=== PATIENT | female | born 1990 | race American Indian/Alaskan Native ===

== ENCOUNTER 2017-06-17 09:02 | Inpatient (IN) | payer MEDICAID ==
[2017-06-17] MEDS ORDERED: fentaNYL 100 MCG/2 ML SDV IVPUSH ONE (12:41)
[2017-06-17] MEDS ORDERED: ePHEDrine 50 MG/ML SDV IVPUSH ONE (13:41)
[2017-06-17] MEDS ORDERED: Lactated Ringers 1,000 ML IV ONE ×3 (13:41→17:32)
--- NOTE | 2017-06-17 13:50 | PCM.LDHP ---
L&D History of Present Illness - General Date of Service: 06/17/17 Admit Problem/Dx: Admission Diagnosis/Problem Admission Diagnosis/Problem Source of Information: Patient History Limitations: Reports: No Limitations - History of Present Illness Introduction:: Abhijit is a 27 year old female with LMP of 08/20/16 and JAIME of 06/14/17 (based on 10 6/7 weeks US) at 40 3/7 with chief complaint of contractions. Present Illness Comments:: She states the contractions started at 9 pm last night, no leaking fluid, small amount of bloody show. Her history was reviewed and significant for UTI and tobacco use (1/2 ppd). She transferred care from [facility] in [place]. She has been followed by Jenny Coello and was scheduled for induction next Mon. PMHxPSHx: Tobacco dependence, Hand surgery, Knee surgery, [place] teeth removal Social history: tobacco dependence, FOB of baby involved, Hiren Armendariz FamHx: Father - Etoh/drug addiciton and Bipolar OB labs: A+, Antibody screen neg, HbsAg neg, Rub Immune, HIV neg, GC/Chlam neg , RPR neg, GBS neg Immunizations: Influenza and Tdap UTD - Related Data Allergies/Adverse Reactions: Allergies Allergy/AdvReac Type Severity Reaction Status Date / Time No Known Allergies Allergy Verified 06/17/17 09:15 Home Medications: Home Meds Ich036/FA/Omega3/Dha/Fish Oil [ Gummies] 1 tab DAILY 06/17/17 [History] Past Medical History Gastrointestinal History: Reports: Other (See Below) Other Gastrointestinal History: acid reflux Genitourinary History: Reports: UTI, Recurrent - Past Surgical History Head Surgeries/Procedures: Reports: None GI Surgical History: Reports: None Female Surgical History: Reports: None Social & Family History - Family History HEENT: Reports: None Cardiac: Reports: Hypertension Respiratory: Reports: None GI: Reports: None : Reports: None OBGYN: Reports: None Musculoskeletal: Reports: None Neurological: Reports: Seizure Psychiatric: Reports: Bipolar Endocrine/Metabolic: Reports: None Hematologic: Reports: None Immunologic: Reports: None Dermatologic: Reports: None Oncologic: Reports: None H&P Review of Systems - Review of Systems: Review Of Systems: See Below General: Reports: No Symptoms HEENT: Reports: No Symptoms Pulmonary: Reports: No Symptoms Cardiovascular: Reports: No Symptoms Gastrointestinal: Reports: No Symptoms Genitourinary: Reports: No Symptoms Musculoskeletal: Reports: Back Pain Skin: Reports: No Symptoms Psychiatric: Reports: No Symptoms Neurological: Reports: No Symptoms Hematologic/Lymphatic: Reports: No Symptoms Immunologic: Reports: No Symptoms L&D Exam - Exam Exam: See Below - Vital Signs Vital Signs: Last Vital Signs Temp 96.9 F 06/17/17 13:00 Pulse 84 06/17/17 13:00 Resp 18 06/17/17 13:00 BP 121/77 06/17/17 13:00 Pulse Ox 98 06/17/17 13:00 Weight: 160 lb - OB Specific Contraction Duration (sec): 50-100 Contraction Frequency (min): 1.5-3.5 Contraction Intensity: Strong - Baugh Score Baugh Score Cervix Position: Midposition Baugh Score Consistency: Soft Baugh Score Effacement: >80% Baugh Score Dilation: 3-4 cm Baugh Score 's Station: -2 Baugh Score Total: 9 - Exam General: Alert, Oriented HEENT: Mucosa Moist & [place] Neck: Supple, Trachea Midline Lungs: Clear to Auscultation, Normal Respiratory Effort Cardiovascular: Regular Rate, Regular Rhythm GI/Abdominal Exam: Normal Bowel Sounds, Soft, Non-Tender Genitourinary: Normal external exam, Cervical dilitation (80/4-5/-2) Extremities: Normal Inspection, Non-Tender, No Pedal Edema Skin: Warm, Dry, Intact Psychiatric: Alert, Normal Affect, Normal Mood - Patient Data Lab Results Last 24 hrs: Laboratory Results - last 24 hr 06/17/17 06/17/17 06/17/17 Range/Units 09:16 10:29 10:29 WBC 21.3 H (4.5-11.0) K/uL RBC 4.58 (3.30-5.50) M/uL Hgb 14.5 (12.0-15.0) g/dL Hct 42.0 (36.0-48.0) % MCV 92 (80-98) fL MCH 32 H (27-31) pg MCHC 35 (32-36) % Plt Count 285 (150-400) K/uL Neut % (Auto) 86 H (36-66) % Lymph % (Auto) 10 L (24-44) % [place] % (Auto) 4 (2-6) % Eos % (Auto) 0 L (2-4) % Baso % (Auto) 0 (0-1) % Urine Color Yellow Urine Appearance Slightly cloudy Urine pH 7.0 (4.5-8.0) Ur Specific [place] 1.010 (1.008-1.030) Urine Protein Negative (NEGATIVE) mg/dL Urine Glucose (UA) Normal (NEGATIVE) mg/dL Urine Ketones Negative (NEGATIVE) mg/dL Urine Occult Blood Large (NEGATIVE) Urine Nitrite Negative (NEGATIVE) Urine Bilirubin Negative (NEGATIVE) Urine Urobilinogen 1 (NORMAL) mg/dL Ur Leukocyte Esterase Large (NEGATIVE) Urine RBC 20-30 H (0-5) Urine WBC 10-20 H (0-5) Ur Epithelial Cells Many Amorphous Sediment Not seen Urine Bacteria Few Urine Mucus Not seen Urine Opiates Screen Negative (NEGATIVE) Ur Oxycodone Screen Negative (NEGATIVE) Urine Methadone Screen Negative (NEGATIVE) Ur Propoxyphene Screen Negative (NEGATIVE) Ur Barbiturates Screen Negative (NEGATIVE) Ur Tricyclics Screen Negative (NEGATIVE) Ur Phencyclidine Scrn Negative (NEGATIVE) Ur Amphetamine Screen Negative (NEGATIVE) U Methamphetamines Scrn Negative (NEGATIVE) Urine MDMA Screen Negative (NEGATIVE) U Benzodiazepines Scrn Negative (NEGATIVE) U Cocaine Metab Screen Negative (NEGATIVE) U Marijuana (THC) Screen Negative (NEGATIVE) Result Diagrams: 06/17/17 10:29 - Problem List (1) SNOMED Code(s): 71496542 ICD Code: Z34.90 - ENCNTR FOR SUPRVSN OF NORMAL , UNSP, UNSP TRIMESTER Status: Acute Current Visit: Yes Qualifiers: Weeks of gestation: 40 weeks Qualified Code(s): Z3A.40 - 40 weeks gestation of Problem List Initiated/Reviewed/Updated: Yes Orders Last 24hrs: Active Orders 24 hr Category Date Time Status Local Anesthetic Infusion Pump [RC] ASDIRECTED Care 06/17/17 13:41 Active Local Anesthetic Infusion Pump [RC] ASDIRECTED Care 06/17/17 13:41 Active PCEA Epidural [RC] ASDIRECTED Care 06/17/17 13:41 Active PCEA Epidural [RC] ASDIRECTED Care 06/17/17 13:41 Active Regular Diet [DIET] Diet 06/17/17 Lunch Active Lactated Ringers [Ringers, Lactated] 1,000 ml Med 06/17/17 13:41 Ordered IV .BOLUS Lactated Ringers [Ringers, Lactated] 1,000 ml Med 06/17/17 13:41 Ordered IV .BOLUS ePHEDrine [ePHEDrine Sulfate] Med 06/17/17 13:41 Once 5 mg IVPUSH ONETIME ONE Epidural Catheter Management [OM.PC] Urgent Oth 06/17/17 13:41 Ordered Medication Orders Ephedrine Sulfate (Ephedrine Sulfate) 5 mg IVPUSH ONETIME ONE Stop: 06/17/17 13:42 Lactated Ringer's (Ringers, Lactated) 1,000 mls @ 999 mls/hr IV .BOLUS ONE Stop: 06/17/17 14:41 Lactated Ringer's (Ringers, Lactated) 1,000 mls @ 999 mls/hr IV .BOLUS ONE Stop: 06/17/17 14:41 Assessment/Plan Comment:: 27 year old female at 40 3/7 in active labor with intact membranes, GBS positive. Tobacco dependence. Declines IV pain medications, desires epidural. Anticipate .
[2017-06-17] MEDS ORDERED: Lactated Ringers 1,000 ML IV SCH (15:00)
--- NOTE | 2017-06-17 15:24 | PCM.PNLD ---
Labor Progress Note - VS & Meds Vital Signs: Last Vital Signs Temp 96.9 F 06/17/17 13:30 Pulse 84 06/17/17 13:30 Resp 18 06/17/17 13:30 BP 121/77 06/17/17 13:30 Pulse Ox 98 06/17/17 13:30 Active Medications: Current Medications Oxytocin/Sodium Chloride (Pitocin In Ns 20 Units/1,000 Ml) 20 unit in 1,000 mls @ 2,997 mls/hr IV TITRATE KODY; 999 MUNITS/MIN PRN Reason: Protocol Discontinued Medications Ephedrine Sulfate (Ephedrine Sulfate) 5 mg IVPUSH ONETIME ONE Stop: 06/17/17 13:42 Fentanyl (Sublimaze) 50 mcg IVPUSH ONETIME ONE Stop: 06/17/17 12:42 Last Admin: 06/17/17 14:05 Dose: Not Given Lactated Ringer's (Ringers, Lactated) 1,000 mls @ 999 mls/hr IV .BOLUS ONE Stop: 06/17/17 14:41 Last Admin: 06/17/17 14:00 Dose: 999 mls/hr Lactated Ringer's (Ringers, Lactated) 1,000 mls @ 999 mls/hr IV .BOLUS ONE Stop: 06/17/17 14:41 - Uterine Contractions Uterine Monitoring Mode: External [place] Contraction Frequency (min): 1.5-3.5 Contraction Duration (sec): 50-100 Contraction Intensity: Strong Uterine Resting Tone: Soft - Monitoring Monitor Mode: External Ultrasound Heart Rate (FHR) Variability: Moderate (6-25 bmp) Accelerations: Present, 15x15 Decelerations: None Strip Review: Category I - Labor Progress (Free Text) Labor Progress: Patient comfortable after epidural, in active labor. Continue to monitor.
[2017-06-17] MEDS ORDERED: fentaNYL 100 MCG/2 ML SDV ONE (15:36)
[2017-06-17] MEDS ORDERED: Ropivacaine 100 ML ONE (15:37)
--- NOTE | 2017-06-17 17:16 | PCM.PNLD ---
Labor Progress Note - VS & Meds Vital Signs: Last Vital Signs Temp 97.9 F 06/17/17 16:00 Pulse 90 06/17/17 16:00 Resp 18 06/17/17 16:00 BP 106/72 06/17/17 15:15 Pulse Ox 98 06/17/17 16:00 Active Medications: Current Medications Oxytocin/Sodium Chloride (Pitocin In Ns 20 Units/1,000 Ml) 20 unit in 1,000 mls @ 2,997 mls/hr IV TITRATE KODY; 999 MUNITS/MIN PRN Reason: Protocol Lactated Ringer's (Ringers, Lactated) 1,000 mls @ 125 mls/hr IV ASDIRECTED KODY Last Admin: 06/17/17 15:05 Dose: 125 mls/hr Discontinued Medications Ephedrine Sulfate (Ephedrine Sulfate) 5 mg IVPUSH ONETIME ONE Stop: 06/17/17 13:42 Fentanyl (Sublimaze) 50 mcg IVPUSH ONETIME ONE Stop: 06/17/17 12:42 Last Admin: 06/17/17 14:05 Dose: Not Given Fentanyl (Sublimaze) Confirm Administered Dose 100 mcg .ROUTE .STK-MED ONE Stop: 06/17/17 15:37 Lactated Ringer's (Ringers, Lactated) 1,000 mls @ 999 mls/hr IV .BOLUS ONE Stop: 06/17/17 14:41 Last Admin: 06/17/17 14:00 Dose: 999 mls/hr Lactated Ringer's (Ringers, Lactated) 1,000 mls @ 999 mls/hr IV .BOLUS ONE Stop: 06/17/17 14:41 Ropivacaine (Naropin 0.2%) Confirm Administered Dose 100 mls @ as directed .ROUTE .STK-MED ONE Stop: 06/17/17 15:38 - Uterine Contractions Uterine Monitoring Mode: External [place] Contraction Frequency (min): 1-3 Contraction Duration (sec): 50-80 Contraction Intensity: Strong Uterine Resting Tone: Soft - Monitoring Monitor Mode: External Ultrasound Heart Rate (FHR) Variability: Moderate (6-25 bmp) Accelerations: Present, 15x15 Decelerations: None Strip Review: Category I - Vaginal Exam Dilation (cm): 6 Effacement (Percent): 90 Station: -1 Sterile Vaginal Exam Performed By: Nadia Malcolm Vaginal Exam Comment: Bulging bag - AROM clear fluid - Labor Progress (Free Text) Labor Progress: 27 year old at 40 3/7 weeks, GBS negative, in active labor. Comfortable with epidural, using peanut ball, segovia in place. Anticipate .
--- NOTE | 2017-06-17 18:06 | PN ---
DATE OF SERVICE: 06/17/2017 This 27-year-old woman is in labor and she is dilated to approximately [address] Nadia Malcolm has requested an epidural be placed. I explained the procedure depth to the patient. She has no allergies and has signed an informed consent and is ready to proceed. She is placed in a sitting position. Her back was prepped with Betadine x3. At approximately L3-4, I injected 2 to 3 mL of xylocaine at skin level and into the deeper tissue. I then placed a 17-gauge Tuohy needle into the epidural space at that level using a loss of resistance technique. I was unable to aspirate blood, fluid, or air and proceeded to give her a bolus of 1.5% Xylocaine preservative-free 5 mL and 2 mL of fentanyl. I then threaded an epidural catheter approximately 3-4 cm in the elbow epidural space and removed the needles over the catheter. The catheter brought up over her right shoulder and taped securely in place. She was then placed on a ropivacaine infusion 0.2% at 12 mL/hour. This was reviewed with the nurse in attendance. The patient tolerated this procedure well. Anesthesia will be notified as they need further care in the OB department. NAME OF PROCEDURE: Placement of labor epidural. Leo Nixon CRNA /[id number]
[2017-06-17] MEDS ORDERED: Lactated Ringers 500 ML IV ONE (18:09)
[2017-06-17] MEDS ORDERED: Lidocaine 1% 50 ML MDV ONE (19:02)
--- NOTE | 2017-06-17 22:10 | PCM.DEL ---
L & D Note - General Info Date of Service: 06/17/17 - Delivery Note Labor: Spontaneous Delivery Outcome: Livebirth Delivery Method: Spontaneous Vaginal Delivery-Single Delivery Mode: Spontaneous Presentation: Right Occiput Anterior (CATALINA) Nuchal Cord: Present, Reduced Prep: Povidone-Iodine (Betadine Anesthesia Type: Epidural Amniotic Fluid Description: Clear Episiotomy Type: None Laceration: 2nd Degree Suture type: Vicryl Suture size: 3-0 Placenta: Intact, Spontaneous Cord: 3 Vessels Estimated Blood Loss: 250 Resuscitation Needed: No [place]: Stimulated, Warmed, [place] Used Provider: Nadia Malcolm Score 1 min: 9 Score 5 min: 9 Score 10 min: 9 Second Stage Interventions: Reports: Encouragement Given, Pushing Effectively, Pushing, McRobert's Position, Pushing, Squat Bar Pulling on Device Delivery Comments (Free Text/Narrative):: Labor progressed steadily. Intermittent lates and variables immediately following AROM responded to repositioning and fluid bolus. Baby tolerated second stage well and delivered CATALINA, nuchal cord x 1. Left shoulder was anterior. Second degree laceration. Cord was clamped and cut after one minute. Placenta delivered without complication, 3V and intact. EBL was 250. Pitocin was started at time of delivery with active management of the third stage of labor. Uterus was firm. Second degree laceration was repaired in usual fashion with 3-0 vicryl. Sponge and needle count were correct. Rectum was confirmed intact. Mom and baby were in stable condition with baby to Mom's chest with skin to skin. - Patient Data Vitals - Most Recent: Last Vital Signs Temp 97.9 F 06/17/17 18:22 Pulse 83 06/17/17 18:30 Resp 16 06/17/17 18:30 BP 104/65 06/17/17 18:30 Pulse Ox 95 06/17/17 18:30 Weight - Most Recent: 160 lb I&O - Last 24 Hours: Intake & Output 06/17/17 06/17/17 06/17/17 06:59 14:59 22:59 Output Total 325 Balance -325 Lab Results Last 24 Hours: Laboratory Results - last 24 hr 06/17/17 06/17/17 06/17/17 Range/Units 09:16 10:29 10:29 WBC 21.3 H (4.5-11.0) K/uL RBC 4.58 (3.30-5.50) M/uL Hgb 14.5 (12.0-15.0) g/dL Hct 42.0 (36.0-48.0) % MCV 92 (80-98) fL MCH 32 H (27-31) pg MCHC 35 (32-36) % Plt Count 285 (150-400) K/uL Neut % (Auto) 86 H (36-66) % Lymph % (Auto) 10 L (24-44) % [place] % (Auto) 4 (2-6) % Eos % (Auto) 0 L (2-4) % Baso % (Auto) 0 (0-1) % Urine Color Yellow Urine Appearance Slightly cloudy Urine pH 7.0 (4.5-8.0) Ur Specific [place] 1.010 (1.008-1.030) Urine Protein Negative (NEGATIVE) mg/dL Urine Glucose (UA) Normal (NEGATIVE) mg/dL Urine Ketones Negative (NEGATIVE) mg/dL Urine Occult Blood Large (NEGATIVE) Urine Nitrite Negative (NEGATIVE) Urine Bilirubin Negative (NEGATIVE) Urine Urobilinogen 1 (NORMAL) mg/dL Ur Leukocyte Esterase Large (NEGATIVE) Urine RBC 20-30 H (0-5) Urine WBC 10-20 H (0-5) Ur Epithelial Cells Many Amorphous Sediment Not seen Urine Bacteria Few Urine Mucus Not seen Urine Opiates Screen Negative (NEGATIVE) Ur Oxycodone Screen Negative (NEGATIVE) Urine Methadone Screen Negative (NEGATIVE) Ur Propoxyphene Screen Negative (NEGATIVE) Ur Barbiturates Screen Negative (NEGATIVE) Ur Tricyclics Screen Negative (NEGATIVE) Ur Phencyclidine Scrn Negative (NEGATIVE) Ur Amphetamine Screen Negative (NEGATIVE) U Methamphetamines Scrn Negative (NEGATIVE) Urine MDMA Screen Negative (NEGATIVE) U Benzodiazepines Scrn Negative (NEGATIVE) U Cocaine Metab Screen Negative (NEGATIVE) U Marijuana (THC) Screen Negative (NEGATIVE) Med Orders - Current: Current Medications Oxytocin/Sodium Chloride (Pitocin In Ns 20 Units/1,000 Ml) 20 unit in 1,000 mls @ 2,997 mls/hr IV TITRATE KODY; 999 MUNITS/MIN PRN Reason: Protocol Lactated Ringer's (Ringers, Lactated) 1,000 mls @ 125 mls/hr IV ASDIRECTED KODY Last Admin: 06/17/17 15:05 Dose: 125 mls/hr Discontinued Medications Ephedrine Sulfate (Ephedrine Sulfate) 5 mg IVPUSH ONETIME ONE Stop: 06/17/17 13:42 Fentanyl (Sublimaze) 50 mcg IVPUSH ONETIME ONE Stop: 06/17/17 12:42 Last Admin: 06/17/17 14:05 Dose: Not Given Fentanyl (Sublimaze) Confirm Administered Dose 100 mcg .ROUTE .STK-MED ONE Stop: 06/17/17 15:37 Lactated Ringer's (Ringers, Lactated) 1,000 mls @ 999 mls/hr IV .BOLUS ONE Stop: 06/17/17 14:41 Last Admin: 06/17/17 14:00 Dose: 999 mls/hr Lactated Ringer's (Ringers, Lactated) 1,000 mls @ 999 mls/hr IV .BOLUS ONE Stop: 06/17/17 14:41 Ropivacaine (Naropin 0.2%) Confirm Administered Dose 100 mls @ as directed .ROUTE .STK-MED ONE Stop: 06/17/17 15:38 Lactated Ringer's (Ringers, Lactated) 1,000 mls @ 999 mls/hr IV BOLUS ONE Stop: 06/17/17 18:32 Last Admin: 06/17/17 17:30 Dose: 999 mls/hr Lactated Ringer's (Ringers, Lactated) 500 mls @ 999 mls/hr IV BOLUS ONE Stop: 06/17/17 18:39 Last Admin: 06/17/17 18:28 Dose: 999 mls/hr Lidocaine HCl (Xylocaine 1%) Confirm Administered Dose 100 ml .ROUTE .STK-MED ONE Stop: 06/17/17 19:03 - Problem List & Annotations (1) SNOMED Code(s): 44192362 Code(s): Z34.90 - ENCNTR FOR SUPRVSN OF NORMAL , UNSP, UNSP TRIMESTER Status: Acute Current Visit: Yes Qualifiers: Weeks of gestation: 40 weeks Qualified Code(s): Z3A.40 - 40 weeks gestation of (2) Normal vaginal delivery SNOMED Code(s): 75640058 Code(s): O80 - ENCOUNTER FOR FULL-TERM UNCOMPLICATED DELIVERY Status: Acute Current Visit: Yes - Problem List Review Problem List Initiated/Reviewed/Updated: Yes - My Orders Last 24 Hours: My Active Orders 06/17/17 13:41 PCEA Epidural [RC] ASDIRECTED Epidural Catheter Management [OM.PC] Urgent 06/17/17 15:00 Lactated Ringers [Ringers, Lactated] 1,000 ml IV ASDIRECTED 06/17/17 15:30 Insert [place] Catheter [Insert Urinary Catheter] [OM.PC] Q24H Urinary Catheter Assessment [RC] ASDIRECTED 06/17/17 18:00 Oxytocin/Normal Saline [Pitocin in NS 20 Units/1,000 ML] 20 unit in 1,000 ml IV TITRATE 06/17/17 Lunch Regular Diet [DIET] - Assessment Assessment:: 27 year old female s/p spontaneous vaginal delivery. See labor summary. - Plan Plan:: 27 year old female at 40 3/7 in active labor with intact membranes, GBS positive. Tobacco dependence. Declines IV pain medications, desires epidural. Anticipate .
[2017-06-17] MEDS ORDERED: Simethicone 80 MG Tab.Chew PO PRN (22:24)
[2017-06-17] MEDS ORDERED: Lanolin 100% Cream 40 GM Tube TOP PRN (22:24)
[2017-06-17] MEDS ORDERED: Acetaminophen/Codeine 300-30 MG Tab PO PRN (22:24)
[2017-06-17] MEDS ORDERED: Docusate Sodium 100 MG Cap PO PRN (22:24)
[2017-06-17] MEDS ORDERED: Acetaminophen 325 MG Tab PO PRN (22:24)
[2017-06-17] MEDS ORDERED: Benzocaine 20% Top Spray 56 GM Bottle TOP PRN (22:24)
[2017-06-17] MEDS ORDERED: Aluminum Hydroxide/Magnesium Hydroxide/Simethicone Susp 30 ML Cup PO PRN (22:24)
[2017-06-17] MEDS: Ibuprofen 800 MG Tab PO PRN (22:52)
[2017-06-17] MEDS ORDERED: hydrOXYzine HCl 100 MG/2 ML SDV IM ONE (23:06)
[2017-06-18] MEDS: Ibuprofen 800 MG Tab PO PRN ×2 (07:20→14:35)
[2017-06-18] MEDS: Prenatal Multivitamin with Calcium/Folic Acid/Iron Tab PO SCH (09:05)
--- NOTE | 2017-06-18 10:40 | PCM.PNPP ---
- General Info Date of Service: 06/18/17 Admission Dx/Problem (Free Text): Admission Diagnosis/Problem Admission Diagnosis/Problem Subjective Update: Patient feeling well. Is drinking, has not eaten much. Slept well after dose of Vistaril last night. Pain controlled with ibuprofen. goind better, latched twice, but baby pretty sleepy. Functional Status: Reports: Pain Controlled - Review of Systems General: Reports: No Symptoms HEENT: Reports: No Symptoms Pulmonary: Reports: No Symptoms Cardiovascular: Reports: No Symptoms Gastrointestinal: Reports: No Symptoms Genitourinary: Reports: No Symptoms Musculoskeletal: Reports: No Symptoms Skin: Reports: No Symptoms Neurological: Reports: No Symptoms Psychiatric: Reports: No Symptoms - General Info Date of Service: 06/18/17 - Patient Data Vital Signs - Most Recent: Last Vital Signs Temp 97.0 F 06/18/17 07:20 Pulse 77 06/18/17 00:30 Resp 18 06/18/17 00:30 BP 106/66 06/18/17 00:30 Pulse Ox 95 06/17/17 18:30 Weight - Most Recent: 160 lb I&O - Last 24 Hours: Intake & Output 06/17/17 06/18/17 06/18/17 21:59 06:59 14:59 Intake Total Output Total Balance Lab Results - Last 24 Hours: Laboratory Results - last 24 hr 06/17/17 06/17/17 06/18/17 Range/Units 10:29 10:29 05:40 WBC 21.3 H 28.5 H (4.5-11.0) K/uL RBC 4.58 3.81 (3.30-5.50) M/uL Hgb 14.5 12.1 D (12.0-15.0) g/dL Hct 42.0 35.6 L (36.0-48.0) % MCV 92 93 (80-98) fL MCH 32 H 32 H (27-31) pg MCHC 35 34 (32-36) % Plt Count 285 229 (150-400) K/uL Neut % (Auto) 86 H 88 H (36-66) % Lymph % (Auto) 10 L 7 L (24-44) % [place] % (Auto) 4 4 (2-6) % Eos % (Auto) 0 L 0 L (2-4) % Baso % (Auto) 0 0 (0-1) % Urine Opiates Screen Negative (NEGATIVE) Ur Oxycodone Screen Negative (NEGATIVE) Urine Methadone Screen Negative (NEGATIVE) Ur Propoxyphene Screen Negative (NEGATIVE) Ur Barbiturates Screen Negative (NEGATIVE) Ur Tricyclics Screen Negative (NEGATIVE) Ur Phencyclidine Scrn Negative (NEGATIVE) Ur Amphetamine Screen Negative (NEGATIVE) U Methamphetamines Scrn Negative (NEGATIVE) Urine MDMA Screen Negative (NEGATIVE) U Benzodiazepines Scrn Negative (NEGATIVE) U Cocaine Metab Screen Negative (NEGATIVE) U Marijuana (THC) Screen Negative (NEGATIVE) Med Orders - Current: Current Medications Acetaminophen (Tylenol) 650 mg PO Q4H PRN PRN Reason: mild pain or fever Acetaminophen/Codeine Phosphate (Tylenol With Codeine No.3 300mg/30mg) 2 tab PO Q4H PRN PRN Reason: Pain (moderate 4-6) Al Hydroxide/Mg Hydroxide (Mag-Al Plus) 30 ml PO Q8H PRN PRN Reason: Heartburn Benzocaine (Vdse-G-Oxawvin 20% [place]) 0 gm TOP Q4H PRN PRN Reason: Perineal Comfort Measure Last Admin: 06/17/17 22:52 Dose: 1 spray Docusate Sodium (Colace) 100 mg PO BID PRN PRN Reason: Constipation Emollient Ointment (Lansinoh Hpa) 0 gm TOP ASDIRECTED PRN PRN Reason: Sore Nipples Last Admin: 06/18/17 09:05 Dose: 1 applic Oxytocin/Sodium Chloride (Pitocin In Ns 20 Units/1,000 Ml) 20 unit in 1,000 mls @ 2,997 mls/hr IV TITRATE KODY; 999 MUNITS/MIN PRN Reason: Protocol Last Admin: 06/17/17 21:35 Dose: 999 munits/min, 2,997 mls/hr Lactated Ringer's (Ringers, Lactated) 1,000 mls @ 125 mls/hr IV ASDIRECTED KODY Last Admin: 06/17/17 15:05 Dose: 125 mls/hr Ibuprofen (Motrin) 800 mg PO Q6H PRN PRN Reason: mild pain or fever Last Admin: 06/18/17 07:20 Dose: 800 mg Prenat Multivit/[place]/Iron/Folic Ac ( Plus Iron) 1 each PO DAILY KODY Last Admin: 06/18/17 09:05 Dose: 1 each Simethicone (Simethicone) 80 mg PO Q4H PRN PRN Reason: Gas Discontinued Medications Ephedrine Sulfate (Ephedrine Sulfate) 5 mg IVPUSH ONETIME ONE Stop: 06/17/17 13:42 Last Admin: 06/17/17 23:44 Dose: Not Given Fentanyl (Sublimaze) 50 mcg IVPUSH ONETIME ONE Stop: 06/17/17 12:42 Last Admin: 06/17/17 14:05 Dose: Not Given Fentanyl (Sublimaze) Confirm Administered Dose 100 mcg .ROUTE .STK-MED ONE Stop: 06/17/17 15:37 Hydroxyzine HCl (Vistaril) 25 mg IM ONETIME ONE Stop: 06/17/17 23:07 Last Admin: 06/17/17 23:34 Dose: 25 mg Lactated Ringer's (Ringers, Lactated) 1,000 mls @ 999 mls/hr IV .BOLUS ONE Stop: 06/17/17 14:41 Last Admin: 06/17/17 14:00 Dose: 999 mls/hr Lactated Ringer's (Ringers, Lactated) 1,000 mls @ 999 mls/hr IV .BOLUS ONE Stop: 06/17/17 14:41 Last Admin: 06/17/17 23:44 Dose: Not Given Ropivacaine (Naropin 0.2%) Confirm Administered Dose 100 mls @ as directed .ROUTE .STK-MED ONE Stop: 06/17/17 15:38 Lactated Ringer's (Ringers, Lactated) 1,000 mls @ 999 mls/hr IV BOLUS ONE Stop: 06/17/17 18:32 Last Admin: 06/17/17 17:30 Dose: 999 mls/hr Lactated Ringer's (Ringers, Lactated) 500 mls @ 999 mls/hr IV BOLUS ONE Stop: 06/17/17 18:39 Last Admin: 06/17/17 18:28 Dose: 999 mls/hr Lidocaine HCl (Xylocaine 1%) Confirm Administered Dose 100 ml .ROUTE .STK-MED ONE Stop: 06/17/17 19:03 Last Admin: 06/17/17 23:44 Dose: Not Given - Infant Interaction Disposition, : in Room with Family Interaction: Holding Infant Infant Feeding: Attempted ; Nursed Fair/Poor, Encouraged to Breastfeed Support Person: Significant Other, Other (see below) - Recovery Exam Fundal Tone: Firm Fundal Level: At Umbilicus Fundal Placement: Midline Lochia Amount: Small Lochia Color: Rubra/Red Episiotomy/Laceration: Approximated Bladder Status: Indwelling Catheter in Place Urinary Elimination: Voided - Exam General: Alert, Oriented Lungs: Clear to Auscultation, Normal Respiratory Effort Cardiovascular: Regular Rate, Regular Rhythm GI/Abdominal Exam: Soft, Non-Tender Extremities: Normal Inspection, Non-Tender, No Pedal Edema Skin: Warm, Dry Psy/Mental Status: Normal Affect, Normal Mood - Problem List & Annotations (1) SNOMED Code(s): 98084242 Code(s): Z34.90 - ENCNTR FOR SUPRVSN OF NORMAL , UNSP, UNSP TRIMESTER Status: Acute Current Visit: Yes Qualifiers: Weeks of gestation: 40 weeks Qualified Code(s): Z3A.40 - 40 weeks gestation of (2) Normal vaginal delivery SNOMED Code(s): 99887390 Code(s): O80 - ENCOUNTER FOR FULL-TERM UNCOMPLICATED DELIVERY Status: Acute Current Visit: Yes - Problem List Review Problem List Initiated/Reviewed/Updated: Yes - My Orders Last 24 Hours: My Active Orders 06/17/17 13:41 PCEA Epidural [RC] ASDIRECTED Epidural Catheter Management [OM.PC] Urgent 06/17/17 15:00 Lactated Ringers [Ringers, Lactated] 1,000 ml IV ASDIRECTED 06/17/17 15:30 Insert [place] Catheter [Insert Urinary Catheter] [OM.PC] Q24H 06/17/17 18:00 Oxytocin/Normal Saline [Pitocin in NS 20 Units/1,000 ML] 20 unit in 1,000 ml IV TITRATE 06/17/17 22:24 Patient Status [ADT] Routine May Shower [RC] ASDIRECTED Up ad Veronica [RC] ASDIRECTED Vital Signs [RC] PFP Consult to Quality Control Director [CONS] Routine Acetaminophen [Tylenol] 650 mg PO Q4H PRN Acetaminophen/Codeine [Tylenol with Codeine No.3 300MG/30MG] 2 tab PO Q4H PRN Alum Hydrox/Mag Hydrox/Simeth [Mag-Al Plus] 30 ml PO Q8H PRN Benzocaine [Xxii-P-Lxfqfbn 20% [place]] See Dose Instructions TOP Q4H PRN Docusate Sodium [Colace] 100 mg PO BID PRN Ibuprofen [Motrin] 800 mg PO Q6H PRN Lanolin [Lansinoh HPA] See Dose Instructions TOP ASDIRECTED PRN Simethicone 80 mg PO Q4H PRN Assess Lochia [WOMSER] Per Unit Routine Assess Uterine Involution [WOMSER] Per Unit Routine Breast Pump [WOMSER] Per Unit Routine DVT/VTE Prophylaxis Reflex [OM.PC] Routine Nothing Per Rectum [WOMSER] Per Unit Routine Resuscitation Status Routine 06/17/17 22:25 Ice Therapy [OM.PC] Per Unit Routine Perineal Care [OM.PC] Per Unit Routine Sitz Bath [OM.PC] Per Unit Routine 06/17/17 22:26 Peripheral IV Discontinue [OM.PC] Routine 06/17/17 22:29 Antiembolic Devices [RC] .Routine VTE/DVT Education [RC] Click to Edit 06/17/17 Lunch Regular Diet [DIET] 06/18/17 09:00 Vit with Ca/FA/Iron [ Plus Iron] 1 each PO DAILY 06/18/17 Breakfast Regular Diet [DIET] - Assessment Assessment:: 27 year old female s/p spontaneous vaginal delivery. See labor summary. PP Day #1. Leukocytosis. - Plan Plan:: Continue routine cares. No cause other than reactive for leukocytosis found. Consider repeat UA if persists. Monitor for signs of sepsis. No tachycardia, tachypnea, or hypotension. Encourage .
[2017-06-19] MEDS: Ibuprofen 800 MG Tab PO PRN ×2 (02:53→12:57)
--- NOTE | 2017-06-19 09:12 | PCM.PNPP ---
- General Info Date of Service: 06/19/17 Admission Dx/Problem (Free Text): Admission Diagnosis/Problem Admission Diagnosis/Problem Subjective Update: Patient feeling well. Is drinking, has not eaten much. Slept well after dose of Vistaril last night. Pain controlled with ibuprofen. goind better, latched twice, but baby pretty sleepy. Functional Status: Reports: Pain Controlled - Review of Systems General: Reports: No Symptoms HEENT: Reports: No Symptoms Pulmonary: Reports: No Symptoms Cardiovascular: Reports: No Symptoms Gastrointestinal: Reports: No Symptoms Genitourinary: Reports: No Symptoms Musculoskeletal: Reports: No Symptoms Skin: Reports: No Symptoms Neurological: Reports: No Symptoms Psychiatric: Reports: No Symptoms - Patient Data Vital Signs - Most Recent: Last Vital Signs Temp 97.4 F 06/19/17 07:38 Pulse 74 06/19/17 02:54 Resp 18 06/19/17 07:38 BP 98/66 06/19/17 07:38 Pulse Ox 97 06/19/17 07:38 Weight - Most Recent: 160 lb I&O - Last 24 Hours: Intake & Output 06/18/17 06/19/17 06/19/17 22:59 06:59 14:59 Intake Total 480 Balance 480 Med Orders - Current: Current Medications Acetaminophen (Tylenol) 650 mg PO Q4H PRN PRN Reason: mild pain or fever Acetaminophen/Codeine Phosphate (Tylenol With Codeine No.3 300mg/30mg) 2 tab PO Q4H PRN PRN Reason: Pain (moderate 4-6) Al Hydroxide/Mg Hydroxide (Mag-Al Plus) 30 ml PO Q8H PRN PRN Reason: Heartburn Benzocaine (Cxwq-C-Ylwjmvr 20% [place]) 0 gm TOP Q4H PRN PRN Reason: Perineal Comfort Measure Last Admin: 06/17/17 22:52 Dose: 1 spray Docusate Sodium (Colace) 100 mg PO BID PRN PRN Reason: Constipation Emollient Ointment (Lansinoh Hpa) 0 gm TOP ASDIRECTED PRN PRN Reason: Sore Nipples Last Admin: 06/18/17 09:05 Dose: 1 applic Oxytocin/Sodium Chloride (Pitocin In Ns 20 Units/1,000 Ml) 20 unit in 1,000 mls @ 2,997 mls/hr IV TITRATE KODY; 999 MUNITS/MIN PRN Reason: Protocol Last Admin: 06/17/17 21:35 Dose: 999 munits/min, 2,997 mls/hr Lactated Ringer's (Ringers, Lactated) 1,000 mls @ 125 mls/hr IV ASDIRECTED [facility] Last Admin: 06/17/17 15:05 Dose: 125 mls/hr Ibuprofen (Motrin) 800 mg PO Q6H PRN PRN Reason: mild pain or fever Last Admin: 06/19/17 02:53 Dose: 800 mg Prenat Multivit/Personal Security Specialist/Iron/Folic Ac ( Plus Iron) 1 each PO DAILY KODY Last Admin: 06/18/17 09:05 Dose: 1 each Simethicone (Simethicone) 80 mg PO Q4H PRN PRN Reason: Gas Discontinued Medications Ephedrine Sulfate (Ephedrine Sulfate) 5 mg IVPUSH ONETIME ONE Stop: 06/17/17 13:42 Last Admin: 06/17/17 23:44 Dose: Not Given Fentanyl (Sublimaze) 50 mcg IVPUSH ONETIME ONE Stop: 06/17/17 12:42 Last Admin: 06/17/17 14:05 Dose: Not Given Fentanyl (Sublimaze) Confirm Administered Dose 100 mcg .ROUTE .STK-MED ONE Stop: 06/17/17 15:37 Hydroxyzine HCl (Vistaril) 25 mg IM ONETIME ONE Stop: 06/17/17 23:07 Last Admin: 06/17/17 23:34 Dose: 25 mg Lactated Ringer's (Ringers, Lactated) 1,000 mls @ 999 mls/hr IV .BOLUS ONE Stop: 06/17/17 14:41 Last Admin: 06/17/17 14:00 Dose: 999 mls/hr Lactated Ringer's (Ringers, Lactated) 1,000 mls @ 999 mls/hr IV .BOLUS ONE Stop: 06/17/17 14:41 Last Admin: 06/17/17 23:44 Dose: Not Given Ropivacaine (Naropin 0.2%) Confirm Administered Dose 100 mls @ as directed .ROUTE .STK-MED ONE Stop: 06/17/17 15:38 Lactated Ringer's (Ringers, Lactated) 1,000 mls @ 999 mls/hr IV BOLUS ONE Stop: 06/17/17 18:32 Last Admin: 06/17/17 17:30 Dose: 999 mls/hr Lactated Ringer's (Ringers, Lactated) 500 mls @ 999 mls/hr IV BOLUS ONE Stop: 06/17/17 18:39 Last Admin: 06/17/17 18:28 Dose: 999 mls/hr Lidocaine HCl (Xylocaine 1%) Confirm Administered Dose 100 ml .ROUTE .STK-MED ONE Stop: 06/17/17 19:03 Last Admin: 06/17/17 23:44 Dose: Not Given - Infant Interaction Infant Disposition, : in Room with Family Interaction: Holding Feeding: Attempted ; Nursed Fair/Poor, Encouraged to Breastfeed Support Person: Significant Other, Other (see below) - Recovery Exam Fundal Tone: Firm Fundal Level: At Umbilicus Fundal Placement: Midline Lochia Amount: Small Lochia Color: Rubra/Red Perineum Description: Intact, Minimal Bruising/Swelling, Edematous Episiotomy/Laceration: Approximated Bladder Status: Voiding Urinary Elimination: Voided - Exam General: Alert, Oriented HEENT: Pupils Equal Neck: Supple Lungs: Clear to Auscultation, Normal Respiratory Effort Cardiovascular: Regular Rate, Regular Rhythm GI/Abdominal Exam: Normal Bowel Sounds, Soft, Non-Tender, No Organomegaly, No Distention, No Abnormal Bruit, No Mass, Pelvis Stable Extremities: Normal Inspection, Normal Range of Motion, Non-Tender, No Pedal Edema, Normal Capillary Refill Skin: Warm, Dry, Intact Wound/Incisions: Healing Well Neurological: No New Focal Deficit Psy/Mental Status: Alert, Normal Affect, Normal Mood - Problem List & Annotations (1) SNOMED Code(s): 82477259 Code(s): Z34.90 - ENCNTR FOR SUPRVSN OF NORMAL , UNSP, UNSP TRIMESTER Status: Acute Current Visit: Yes Qualifiers: Weeks of gestation: 40 weeks Qualified Code(s): Z3A.40 - 40 weeks gestation of (2) Normal vaginal delivery SNOMED Code(s): 84471350 Code(s): O80 - ENCOUNTER FOR FULL-TERM UNCOMPLICATED DELIVERY Status: Acute Current Visit: Yes - Problem List Review Problem List Initiated/Reviewed/Updated: Yes - Assessment Assessment:: 27 year old female s/p spontaneous vaginal delivery. See labor summary. PP Day #1. Leukocytosis. 06/19/17 PPD 2 D/C no problems doing well well - Plan Plan:: Continue routine cares. No cause other than reactive for leukocytosis found. Consider repeat UA if persists. Monitor for signs of sepsis. No tachycardia, tachypnea, or hypotension. Encourage . 06/19/17 Home today See me 6 weeks for a post visit.
[2017-06-19] MEDS: Prenatal Multivitamin with Calcium/Folic Acid/Iron Tab PO SCH (12:57)
== END 2017-06-19 14:05 | disposition home or self-care (01) | DRG 775 ==
LOC: JP.OBCHECK 09:02 → JP.OB 10:10 → OBSVTOIN 21:30 → JP.OB 21:30 → JP.MS 22:28
PROVIDERS: ADMIT Family Medicine; ATTEND Family Medicine
PROC: 10E0XZZ Delivery of Products of Conception, External Approach (ICD-10-PCS; principal; 2017-06-17)
PROC: 0KQM0ZZ Repair Perineum Muscle, Open Approach (ICD-10-PCS; 2017-06-17)
PROC: 10907ZC Drainage of Amniotic Fluid, Therapeutic from Products of Conception, Via Natural or Artificial Opening (ICD-10-PCS; 2017-06-17)
PROC: 00HU33Z Insertion of Infusion Device into Spinal Canal, Percutaneous Approach (ICD-10-PCS; 2017-06-17)
PROC: 3E0R3BZ Introduction of Anesthetic Agent into Spinal Canal, Percutaneous Approach (ICD-10-PCS; 2017-06-17)
DX: O99.824 Streptococcus B carrier state complicating childbirth (principal); Z3A.40 40 weeks gestation of pregnancy; Z37.0 Single live birth; O69.81X0 Labor and delivery complicated by cord around neck, without compression, not applicable or unspecified; O70.1 Second degree perineal laceration during delivery; O76 Abnormality in fetal heart rate and rhythm complicating labor and delivery; O99.334 Smoking (tobacco) complicating childbirth; F17.200 Nicotine dependence, unspecified, uncomplicated
CPT/HCPCS: 36415; 59409; 80305; 81001; 85025; 99211; A9270-GY; J2590; J2795; J3010; J3410; J7120

== ENCOUNTER 2019-03-23 07:26 | Inpatient (IN) | payer MEDICAID ==
[2019-03-23] MEDS ORDERED: fentaNYL 100 MCG/2 ML SDV IVPUSH PRN (08:01)
[2019-03-23] MEDS ORDERED: Sodium Chloride 0.9% 10 ML Syringe FLUSH PRN ×2 (08:01→15:57)
[2019-03-23] MEDS ORDERED: Calcium Carbonate 500 MG Tab.Chew PO PRN (08:01)
[2019-03-23] MEDS ORDERED: Ondansetron 4 MG/2 ML SDV IV PRN (08:01)
[2019-03-23] MEDS: Misoprostol 50 MCG (1/2 of 100 MCG) Tab VAG ONE ×2 (08:12→08:42)
[2019-03-23] MEDS ORDERED: Penicillin G Potassium 5 MILLUNITS in Sodium Chloride 0.9% 100 ML IV ONE (08:30)
--- NOTE | 2019-03-23 08:52 | PCM.LDHP ---
L&D History of Present Illness - General Date of Service: 03/23/19 Admit Problem/Dx: Patient Status Order with Admit Dx/Problem 03/23/19 08:01 Patient Status [ADT] Routine Admission Diagnosis/Problem Admission Diagnosis/Problem Term Source of Information: Patient History Limitations: Reports: No Limitations - History of Present Illness Introduction:: 03/23/19 29 yo is here for induction of labor at 38 1/7 due to IUGR. Ultrasound done yesterday showed baby at <10%, fundal height measured 3 cm low. NST reactive this am so 50 mcg cytotec inserted vaginally, SVE 2.5/70/-2. Her first labor was spontaneous and without complication. She does smoke but UDS negative. She had late care and lack of care this . GBS positive, antibiotics started. Blood type A pos. Hgb 13. 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: : 2 Para: 1 LMP (Approximate): Musculoskeletal History: Reports: Other (See Below) Other Musculoskeletal History: neck muscle strain Neurological History: Reports: Headaches, Chronic, Migraines Psychiatric History: Reports: Depression, Other (See Below) Other Psychiatric History: apap overdose 2012 - Infectious Disease History Infectious Disease History: Reports: Chicken Pox - Past Surgical History Head Surgeries/Procedures: Reports: None HEENT Surgical History: Reports: Oral Surgery Other HEENT Surgeries/Procedures: wisdom tooth extraction GI Surgical History: Reports: None Female Surgical History: Reports: None Musculoskeletal Surgical History: Reports: Other (See Below) Other Musculoskeletal Surgeries/Procedures:: hand, knee surgery Social & Family History - Family History HEENT: Reports: None Cardiac: Reports: Hypertension Respiratory: Reports: None GI: Reports: None : Reports: None OBGYN: Reports: None Musculoskeletal: Reports: None Neurological: Reports: Seizure Psychiatric: Reports: Bipolar Endocrine/Metabolic: Reports: None Hematologic: Reports: None Immunologic: Reports: None Dermatologic: Reports: None Oncologic: Reports: None - Tobacco Use Smoking Status *Q: Current Every Day Smoker Years of Tobacco use: 10 Packs/Tins Daily: 0.5 Used Tobacco, but Quit: No Second Hand Smoke Exposure: Yes - Caffeine Use Caffeine Use: Reports: Coffee, Soda - Recreational Drug Use Recreational Drug Use: No H&P Review of Systems - Review of Systems: Review Of Systems: See Below General: Reports: No Symptoms HEENT: Reports: No Symptoms Pulmonary: Reports: No Symptoms Cardiovascular: Reports: No Symptoms Gastrointestinal: Reports: No Symptoms Genitourinary: Reports: No Symptoms Musculoskeletal: Reports: No Symptoms Skin: Reports: No Symptoms Psychiatric: Reports: No Symptoms Neurological: Reports: No Symptoms Hematologic/Lymphatic: Reports: No Symptoms Immunologic: Reports: No Symptoms L&D Exam - Exam Exam: See Below - Vital Signs Vital Signs: Last Vital Signs Temp 36.2 C 03/23/19 07:40 Pulse 89 03/23/19 07:40 Resp 16 03/23/19 07:40 BP 123/67 03/23/19 07:40 Pulse Ox 95 03/23/19 07:40 Weight: 75.296 kg - OB Specific Contraction Frequency (min): 0 Movement: Active Heart Tones: Present Heart Tones per Min: 130 Heart Rate (FHR) Variability: Moderate (6-25 bmp) Presentation: Vertex Estimated Weight: 5.5-6 lbs - Baugh Score Baugh Score Cervix Position: Midposition Baugh Score Consistency: Soft Bauhg Score Effacement: 51-70% Baugh Score Dilation: 1-2 cm Baugh Score Infant's Station: -2 Baugh Score Total: 7 - Exam General: Alert, Oriented HEENT: PERRLA, Conjunctiva Clear, EACs Clear, EOMI, Hearing Intact, Mucosa Moist & [place], Nares Patent, Normal Nasal Septum, Posterior Pharynx Clear, TMs Clear Neck: Supple, Trachea Midline Lungs: Clear to Auscultation, Normal Respiratory Effort Cardiovascular: Regular Rate, Regular Rhythm GI/Abdominal Exam: Normal Bowel Sounds, Soft, Non-Tender, No Organomegaly, No Distention, No Mass, Pelvis Stable Rectal Exam: Normal Exam, Normal Rectal Tone Genitourinary: Normal external exam, Normal bimanual exam, Normal speculum exam Back Exam: Normal Inspection, Full Range of Motion Extremities: Normal Inspection, Normal Range of Motion, Non-Tender, No Pedal Edema, Normal Capillary Refill Skin: Warm, Dry, Intact Neurological: Cranial Nerves Intact, Reflexes Equal Bilateral Psychiatric: Alert, Normal Affect, Normal Mood - Patient Data Lab Results Last 24 hrs: Laboratory Results - last 24 hr 03/23/19 03/23/19 03/23/19 Range/Units 07:43 07:55 07:55 WBC 13.3 H (4.5-11.0) K/uL RBC 4.36 (3.30-5.50) M/uL Hgb 13.0 (12.0-15.0) g/dL Hct 40.1 (36.0-48.0) % MCV 92 (80-98) fL MCH 30 (27-31) pg MCHC 32 (32-36) % Plt Count 333 (150-400) K/uL Neut % (Auto) 71 H (36-66) % Lymph % (Auto) 20 L (24-44) % [place] % (Auto) 8 H (2-6) % Eos % (Auto) 1 L (2-4) % Baso % (Auto) 0 (0-1) % Urine Color Yellow (YELLOW) Urine Appearance Cloudy A (CLEAR) Urine pH 6.5 (5.0-8.0) Ur Specific [place] 1.015 (1.008-1.030) Urine Protein Negative (NEGATIVE) mg/dL Urine Glucose (UA) Negative (NEGATIVE) mg/dL Urine Ketones Negative (NEGATIVE) mg/dL Urine Occult Blood Trace-lysed H (NEGATIVE) Urine Nitrite Negative (NEGATIVE) Urine Bilirubin Negative (NEGATIVE) Urine Urobilinogen 0.2 (0.2-1.0) EU/dL Ur Leukocyte Esterase Large H (NEGATIVE) Urine RBC 5-10 H (0-5) Urine WBC 50-75 H (0-5) Ur Epithelial Cells Many Amorphous Sediment Not seen Urine Bacteria Many Urine Mucus Moderate Urine Opiates Screen Negative (NEGATIVE) Ur Oxycodone Screen Negative (NEGATIVE) Urine Methadone Screen Negative (NEGATIVE) Ur Propoxyphene Screen Negative (NEGATIVE) Ur Barbiturates Screen Negative (NEGATIVE) Ur Tricyclics Screen Negative (NEGATIVE) Ur Phencyclidine Scrn Negative (NEGATIVE) Ur Amphetamine Screen Negative (NEGATIVE) U Methamphetamines Scrn Negative (NEGATIVE) Urine MDMA Screen Negative (NEGATIVE) U Benzodiazepines Scrn Negative (NEGATIVE) U Cocaine Metab Screen Negative (NEGATIVE) U Marijuana (THC) Screen Negative (NEGATIVE) Result Diagrams: 03/23/19 07:43 - Problem List (1) IUGR (intrauterine growth retardation) Status: Acute Current Visit: Yes (2) Late care affecting SNOMED Code(s): 513035928 ICD Code: O09.30 - SUPRVSN OF PREG W INSUFFICIENT ANTENAT CARE, UNSP TRIMESTER Status: Acute Current Visit: Yes (3) Tobacco abuse SNOMED Code(s): 970433353 ICD Code: Z72.0 - TOBACCO USE Status: Acute Current Visit: Yes (4) Term SNOMED Code(s): 19071553 ICD Code: Z34.90 - ENCNTR FOR SUPRVSN OF NORMAL , UNSP, UNSP TRIMESTER Status: Acute Current Visit: Yes Problem List Initiated/Reviewed/Updated: Yes Orders Last 24hrs: Active Orders 24 hr Category Date Time Status Patient Status [ADT] Routine ADT 03/23/19 08:01 Active Communication Order [RC] ASDIRECTED Care 03/23/19 08:01 Active Heart Tones [RC] PER UNIT ROUTINE Care 03/23/19 08:01 Active Non Stress Test [RC] Click to Edit Care 03/23/19 08:01 Active Notify Provider Vital Signs [RC] PRN Care 03/23/19 08:05 Active Notify Provider [RC] PRN Care 03/23/19 08:01 Active Up ad Veronica [RC] ASDIRECTED Care 03/23/19 08:01 Active VTE/DVT Education [RC] Click to Edit Care 03/23/19 08:03 Active Vital Signs [RC] PER UNIT ROUTINE Care 03/23/19 08:01 Active Regular Diet [DIET] Diet 03/23/19 Breakfast Active Calcium Carbonate [Tums] Med 03/23/19 08:01 Active 1,000 mg PO Q2H PRN Ondansetron [Zofran] Med 03/23/19 08:01 Active 4 mg IV Q4H PRN Oxytocin/Normal Saline [Pitocin in NS 20 Units/1,000 ML Med 03/23/19 08:15 Active ] 20 unit in 1,000 ml IV ASDIRECTED Penicillin G Potassium [Pfizerpen] 2.5 millunits Med 03/23/19 12:30 Active Sodium Chloride 0.9% [Normal Saline] 50 ml IV Q4H Penicillin G Potassium [Pfizerpen] 5 millunits Med 03/23/19 08:30 Active Sodium Chloride 0.9% [Normal Saline] 100 ml IV ONETIME Sodium Chloride 0.9% [Saline Flush] Med 03/23/19 08:01 Active 10 ml FLUSH ASDIRECTED PRN fentaNYL [Sublimaze] Med 03/23/19 08:01 Active 100 mcg IVPUSH Q1H PRN DVT/VTE Prophylaxis Reflex [OM.PC] Routine Oth 03/23/19 08:01 Ordered Saline Lock Insert [OM.PC] Routine Oth 03/23/19 08:01 Ordered Resuscitation Status Routine Resus Stat 03/23/19 08:01 Ordered Medication Orders Calcium Carbonate/Glycine (Tums) 1,000 mg PO Q2H PRN PRN Reason: Indigestion Fentanyl (Sublimaze) 100 mcg IVPUSH Q1H PRN PRN Reason: Pain (moderate 4-6) Penicillin G Potassium 5 (millunits/ Sodium Chloride) 100 mls @ 100 mls/hr IV ONETIME ONE Stop: 03/23/19 09:29 Last Admin: 03/23/19 08:27 Dose: 100 mls/hr Penicillin G Potassium 2.5 (millunits/ Sodium Chloride) 50 mls @ 100 mls/hr IV Q4H KODY Oxytocin/Sodium Chloride (Pitocin In Ns 20 Units/1,000 Ml) 20 unit in 1,000 mls @ 999 mls/hr IV ASDIRECTED KODY; Protocol Ondansetron HCl (Zofran) 4 mg IV Q4H PRN PRN Reason: Nausea/Vomiting Sodium Chloride (Saline Flush) 10 ml FLUSH ASDIRECTED PRN PRN Reason: Keep Vein Open Assessment/Plan Comment:: 03/23/19 29 yo is here at 38 1/7 weeks due to IUGR noted on ultrasound yesterday Cervix 2.5/70/-2 NST reactive Late care AXEL normal EFW on US 5 lb 1 oz GBS positive Hep C positive mother, RNA negative Plan: Cytotec 50 mcg inserted vaginally Plans nitrous oxide for pain control Anticipate of male infant Continuous monitoring for IUGR Antibiotics for GBS
[2019-03-23] MEDS: Lactated Ringers 1,000 ML IV SCH ×2 (09:52→17:16)
[2019-03-23] MEDS: Penicillin G Potassium 2.5 MILLUNITS in Sodium Chloride 0.9% 50 ML IV SCH ×2 (12:16→17:12)
--- NOTE | 2019-03-23 12:37 | PCM.PNLD ---
Labor Progress Note - VS & Meds Vital Signs: Last Vital Signs Temp 35.7 C 03/23/19 08:40 Pulse 82 03/23/19 10:30 Resp 16 03/23/19 10:30 BP 113/74 03/23/19 10:30 Pulse Ox 97 03/23/19 10:30 Active Medications: Current Medications Calcium Carbonate/Glycine (Tums) 1,000 mg PO Q2H PRN PRN Reason: Indigestion Fentanyl (Sublimaze) 100 mcg IVPUSH Q1H PRN PRN Reason: Pain (moderate 4-6) Penicillin G Potassium 2.5 (millunits/ Sodium Chloride) 50 mls @ 100 mls/hr IV Q4H KODY Last Admin: 03/23/19 12:16 Dose: 100 mls/hr Oxytocin/Sodium Chloride (Pitocin In Ns 20 Units/1,000 Ml) 20 unit in 1,000 mls @ 999 mls/hr IV ASDIRECTED KODY; Protocol Lactated Ringer's (Ringers, Lactated) 1,000 mls @ 50 mls/hr IV ASDIRECTED KODY Last Admin: 03/23/19 09:52 Dose: 50 mls/hr Ondansetron HCl (Zofran) 4 mg IV Q4H PRN PRN Reason: Nausea/Vomiting Sodium Chloride (Saline Flush) 10 ml FLUSH ASDIRECTED PRN PRN Reason: Keep Vein Open Discontinued Medications Penicillin G Potassium 5 (millunits/ Sodium Chloride) 100 mls @ 100 mls/hr IV ONETIME ONE Stop: 03/23/19 09:29 Last Admin: 03/23/19 08:27 Dose: 100 mls/hr Misoprostol (Cytotec) 50 mcg VAG ONETIME ONE Stop: 03/23/19 07:41 Last Admin: 03/23/19 08:42 Dose: 50 mcg - Uterine Contractions Uterine Monitoring Mode: External [place] Contraction Frequency (min): 2-3.5 Contraction Duration (sec): 50-70 Contraction Intensity: Mild to Moderate Uterine Resting Tone: Soft - Monitoring Monitor Mode: External Ultrasound Heart Rate (FHR) Variability: Moderate (6-25 bmp) Accelerations: Present, 15x15 Decelerations: None Strip Review: Category I - Vaginal Exam Dilation (cm): 3-3.5 Effacement (Percent): 70 Station: -2 Sterile Vaginal Exam Performed By: Barbie Cespedes - Labor Progress (Free Text) Labor Progress: 03/23/19 SVE 3.5/70/-2. Intact membranes. She has started kelli with the dose of cytotec from this am and is feeling them. We will recheck in one hour for cervical change, if none, anticipate pitocin titrate per protocol. Possible AROM if patient reaches 4-5 cm, procedure discussed with patient and she agrees to this plan. Encourage ambulation. Anticipate .
--- NOTE | 2019-03-23 13:35 | PCM.PNLD ---
Labor Progress Note - VS & Meds Vital Signs: Last Vital Signs Temp 35.7 C 03/23/19 08:40 Pulse 82 03/23/19 10:30 Resp 16 03/23/19 10:30 BP 113/74 03/23/19 10:30 Pulse Ox 97 03/23/19 10:30 Active Medications: Current Medications Calcium Carbonate/Glycine (Tums) 1,000 mg PO Q2H PRN PRN Reason: Indigestion Fentanyl (Sublimaze) 100 mcg IVPUSH Q1H PRN PRN Reason: Pain (moderate 4-6) Penicillin G Potassium 2.5 (millunits/ Sodium Chloride) 50 mls @ 100 mls/hr IV Q4H KODY Last Admin: 03/23/19 12:16 Dose: 100 mls/hr Oxytocin/Sodium Chloride (Pitocin In Ns 20 Units/1,000 Ml) 20 unit in 1,000 mls @ 999 mls/hr IV ASDIRECTED KODY; Protocol Lactated Ringer's (Ringers, Lactated) 1,000 mls @ 50 mls/hr IV ASDIRECTED KODY Last Admin: 03/23/19 09:52 Dose: 50 mls/hr Ondansetron HCl (Zofran) 4 mg IV Q4H PRN PRN Reason: Nausea/Vomiting Sodium Chloride (Saline Flush) 10 ml FLUSH ASDIRECTED PRN PRN Reason: Keep Vein Open Discontinued Medications Penicillin G Potassium 5 (millunits/ Sodium Chloride) 100 mls @ 100 mls/hr IV ONETIME ONE Stop: 03/23/19 09:29 Last Admin: 03/23/19 08:27 Dose: 100 mls/hr Misoprostol (Cytotec) 50 mcg VAG ONETIME ONE Stop: 03/23/19 07:41 Last Admin: 03/23/19 08:42 Dose: 50 mcg - Uterine Contractions Uterine Monitoring Mode: External [place] Contraction Frequency (min): 2-4 Contraction Duration (sec): 50-60 Contraction Intensity: Mild to Moderate Uterine Resting Tone: Soft - Monitoring Monitor Mode: External Ultrasound Heart Rate (FHR) Variability: Moderate (6-25 bmp) Accelerations: Present, 15x15 Decelerations: None Strip Review: Category I - Vaginal Exam Dilation (cm): 3.5 Effacement (Percent): 70 Station: -2 Sterile Vaginal Exam Performed By: Barbie Cespedes - Labor Progress (Free Text) Labor Progress: 03/23/19 No change in cervical exam. Patient rates contractions at 4/10. She is tearful through out them. Recommended tub bath for now and we will start pitocin per protocol titrating up. Membranes intact. Anticipate . Category 1 tracing.
--- NOTE | 2019-03-23 15:27 | PCM.PNLD ---
Labor Progress Note - VS & Meds Vital Signs: Last Vital Signs Temp 35.8 C 03/23/19 14:30 Pulse 75 03/23/19 14:30 Resp 18 03/23/19 14:30 BP 123/71 03/23/19 14:30 Pulse Ox 97 03/23/19 14:30 Active Medications: Current Medications Calcium Carbonate/Glycine (Tums) 1,000 mg PO Q2H PRN PRN Reason: Indigestion Fentanyl (Sublimaze) 100 mcg IVPUSH Q1H PRN PRN Reason: Pain (moderate 4-6) Penicillin G Potassium 2.5 (millunits/ Sodium Chloride) 50 mls @ 100 mls/hr IV Q4H KODY Last Admin: 03/23/19 12:16 Dose: 100 mls/hr Oxytocin/Sodium Chloride (Pitocin In Ns 20 Units/1,000 Ml) 20 unit in 1,000 mls @ 999 mls/hr IV ASDIRECTED [facility]; Protocol Last Titration: 03/23/19 15:06 Dose: 12 mls/hr, 12 mls/hr Lactated Ringer's (Ringers, Lactated) 1,000 mls @ 50 mls/hr IV ASDIRECTED KODY Last Admin: 03/23/19 09:52 Dose: 50 mls/hr Ondansetron HCl (Zofran) 4 mg IV Q4H PRN PRN Reason: Nausea/Vomiting Sodium Chloride (Saline Flush) 10 ml FLUSH ASDIRECTED PRN PRN Reason: Keep Vein Open Discontinued Medications Penicillin G Potassium 5 (millunits/ Sodium Chloride) 100 mls @ 100 mls/hr IV ONETIME ONE Stop: 03/23/19 09:29 Last Admin: 03/23/19 08:27 Dose: 100 mls/hr Misoprostol (Cytotec) 50 mcg VAG ONETIME ONE Stop: 03/23/19 07:41 Last Admin: 03/23/19 08:42 Dose: 50 mcg - Uterine Contractions Uterine Monitoring Mode: External [place] Contraction Frequency (min): x2 Contraction Duration (sec): 50-60 Contraction Intensity: Mild to Moderate Uterine Resting Tone: Soft - Monitoring Monitor Mode: External Ultrasound Heart Rate (FHR) Variability: Moderate (6-25 bmp) Accelerations: Present, 15x15 Decelerations: None Strip Review: Category I - Vaginal Exam Dilation (cm): 5 Effacement (Percent): 80 Station: -2 Cervical Position: Midposition Sterile Vaginal Exam Performed By: Barbie Cespedes - Labor Progress (Free Text) Labor Progress: 03/23/19 SVE /-2, head well applied to cervix. AROM done, moderate amount of clear fluid. Category 1 tracing. Plan is to leave pitocin where it is at 4 mu and increase only if needed, with AROM may not need to turn it up again.
[2019-03-23] MEDS ORDERED: diphenhydrAMINE 50 MG/ML SDV IVPUSH PRN ×2 (15:57)
[2019-03-23] MEDS ORDERED: ePHEDrine 50 MG/ML SDV IVPUSH PRN (15:57)
[2019-03-23] MEDS ORDERED: Naloxone 0.4 MG/ML SDV IVPUSH PRN (15:57)
[2019-03-23] MEDS ORDERED: Ropivacaine 100 ML ONE (16:36)
[2019-03-23] MEDS ORDERED: Lidocaine 1% 50 ML MDV ONE (16:40)
[2019-03-23] MEDS ORDERED: Lidocaine 1% 20 ML MDV INJECT ONE (17:12)
[2019-03-23] MEDS ORDERED: Acetaminophen 325 MG Tab, 50 Tab Bulk Bottle PO PRN (17:15)
[2019-03-23] MEDS ORDERED: Ibuprofen 200 MG Tab, 24 Tab Bulk Bottle PO PRN (17:15)
[2019-03-23] MEDS ORDERED: Docusate Sodium 100 MG Cap PO PRN (17:15)
[2019-03-23] MEDS ORDERED: Lanolin 100% Cream 40 GM Tube TOP PRN (17:15)
--- NOTE | 2019-03-23 17:22 | ANES ---
DATE OF SERVICE: 03/23/2019 INDICATION: Abhijit is a 29-year-old female patient of Barbie Cespedes, on our OB floor. I was requested to assess her for labor epidural. She is a 38-week gestation female, healthy. Found no contraindications for epidural placement with lab or history. She was aware of risks and benefits of the procedure and okay to proceed, and consent was received. TECHNIQUE: We had her seated at the edge of the bed. Betadine prep x3 to lumbar region. Sterile drape was placed. 1% lidocaine skin wheal as well as deep at the L3-L4. A 17-gauge Tuohy was placed to loss of resistance with ease. Negative CSF, negative heme, and negative paresthesia. I placed a silicone catheter to 14 cm. A test dose was given, 3 mL of 1.5% lidocaine with 1:200,000 epinephrine. Negative sequelae. I then dosed with 12 mL of 0.2% ropivacaine and began an infusion of that same 0.2% at 12 mL an hour. Vitals were within normal limits. Please refer to nursing notes for vital signs and neuro status, which were unchanged throughout. She tolerated the procedure quite well. The catheter was secured. The patient was placed in the supine position and, again, tolerated the procedure quite well. Julian Quan CRNA /[id number]
[2019-03-23] MEDS ORDERED: Ropivacaine 200 MG in Premix Bag 1 BAG EPIDUR SCH (17:30)
--- NOTE | 2019-03-23 17:37 | PCM.DEL ---
L & D Note - General Info Date of Service: 03/23/19 Mother's Due Date: 04/05/19 - Delivery Note Labor: Spontaneous Cervical Ripening Method: Misoprostil Delivery Outcome: Livebirth Delivery Method: Spontaneous Vaginal Delivery-Single Infant Delivery Mode: Spontaneous Presentation: Right Occiput Anterior (CATALINA) Nuchal Cord: None Anesthesia Type: Epidural Amniotic Fluid Description: Clear Episiotomy Type: None Laceration: 2nd Degree Suture type: Vicryl Suture size: 3-0 Placenta: Intact, Spontaneous Cord: 3 Vessels Estimated Blood Loss: 350 Resuscitation Needed: No Geraldine: Stimulated, Warmed Provider: Barbie Cespedes Score 1 min: 9 Score 5 min: 9 Second Stage Interventions: Reports: Second Nurse Assessed Progress of Descent, Second Nurse Reviewed Contraction Pattern, Second Nurse Reviewed Heart Tones, Encouragement Given, Pushing Effectively, Pushing, McRobert's Position Delivery Comments (Free Text/Narrative):: 03/23/19 29 yo G2 now P2 delivered viable male at 1636 via at 38 1/7 weeks. Induction was done with cytotec followed by pitocin and AROM of clear fluid. She used an epidural for pain relief which was given shortly before pushing. delivered CATALINA with no nuchal cord. was immediately placed on mothers chest and stimulated. He cried spontaneously and apgars were 9, 9. Delayed cord clamping completed x 3 min. Placenta delivered spontaneously intact with a 3 vessel cord. Sent to pathology for IUGR. FF and EBL 350 ml. Second degree tear repaired without complication. No cervical or vaginal lacerations. Stages of labor: [id number] Induction Criteria - Baugh Score Baugh Score Dilation: 1-2 cm Baugh Score Effacement: 60-70% Baugh Score Infant's Station: -2 Baugh Score Consistency: Soft Baugh Score Cervix Position: Midposition Baugh Score Total: 7 Baugh Score Presenting Part: Reports: Cephalic - Induction Gestational Age >/= 39 wks: No Medical Indication: IUGR Estimated Pelvis: Reports: Adequate Reassuring Monitoring Strip: Yes Absence of Tachy Systole: Yes - Augmentation Estimated Pelvis: Reports: Adequate Weight Estimated:: Reports: SGA Reassuring Monitoring Strip: Yes Absence of Tachy Systole: Yes - General Info Date of Service: 03/23/19 Functional Status: Reports: Pain Controlled - Review of Systems General: Reports: No Symptoms HEENT: Reports: No Symptoms Pulmonary: Reports: No Symptoms Cardiovascular: Reports: No Symptoms Gastrointestinal: Reports: No Symptoms Genitourinary: Reports: No Symptoms Musculoskeletal: Reports: No Symptoms Skin: Reports: No Symptoms Neurological: Reports: No Symptoms Psychiatric: Reports: No Symptoms - Patient Data Vitals - Most Recent: Last Vital Signs Temp 35.8 C 03/23/19 14:30 Pulse 75 03/23/19 14:30 Resp 18 03/23/19 14:30 BP 123/71 03/23/19 14:30 Pulse Ox 97 03/23/19 14:30 Weight - Most Recent: 75.296 kg I&O - Last 24 Hours: Intake & Output 03/23/19 03/23/19 03/23/19 06:59 14:59 22:59 Intake Total 150 Balance 150 Lab Results Last 24 Hours: Laboratory Results - last 24 hr 03/23/19 03/23/19 03/23/19 Range/Units 07:43 07:55 07:55 WBC 13.3 H (4.5-11.0) K/uL RBC 4.36 (3.30-5.50) M/uL Hgb 13.0 (12.0-15.0) g/dL Hct 40.1 (36.0-48.0) % MCV 92 (80-98) fL MCH 30 (27-31) pg MCHC 32 (32-36) % Plt Count 333 (150-400) K/uL Neut % (Auto) 71 H (36-66) % Lymph % (Auto) 20 L (24-44) % [place] % (Auto) 8 H (2-6) % Eos % (Auto) 1 L (2-4) % Baso % (Auto) 0 (0-1) % Urine Color Yellow (YELLOW) Urine Appearance Cloudy A (CLEAR) Urine pH 6.5 (5.0-8.0) Ur Specific [place] 1.015 (1.008-1.030) Urine Protein Negative (NEGATIVE) mg/dL Urine Glucose (UA) Negative (NEGATIVE) mg/dL Urine Ketones Negative (NEGATIVE) mg/dL Urine Occult Blood Trace-lysed H (NEGATIVE) Urine Nitrite Negative (NEGATIVE) Urine Bilirubin Negative (NEGATIVE) Urine Urobilinogen 0.2 (0.2-1.0) EU/dL Ur Leukocyte Esterase Large H (NEGATIVE) Urine RBC 5-10 H (0-5) Urine WBC 50-75 H (0-5) Ur Epithelial Cells Many Amorphous Sediment Not seen Urine Bacteria Many Urine Mucus Moderate Urine Opiates Screen Negative (NEGATIVE) Ur Oxycodone Screen Negative (NEGATIVE) Urine Methadone Screen Negative (NEGATIVE) Ur Propoxyphene Screen Negative (NEGATIVE) Ur Barbiturates Screen Negative (NEGATIVE) Ur Tricyclics Screen Negative (NEGATIVE) Ur Phencyclidine Scrn Negative (NEGATIVE) Ur Amphetamine Screen Negative (NEGATIVE) U Methamphetamines Scrn Negative (NEGATIVE) Urine MDMA Screen Negative (NEGATIVE) U Benzodiazepines Scrn Negative (NEGATIVE) U Cocaine Metab Screen Negative (NEGATIVE) U Marijuana (THC) Screen Negative (NEGATIVE) Med Orders - Current: Current Medications Acetaminophen (Tylenol Bulk Bottle) 0 mg PO Q4H PRN PRN Reason: Pain Calcium Carbonate/Glycine (Tums) 1,000 mg PO Q2H PRN PRN Reason: Indigestion Diphenhydramine HCl (Benadryl) 25 mg IVPUSH Q6H PRN PRN Reason: Itching Diphenhydramine HCl (Benadryl) 50 mg IVPUSH Q6H PRN PRN Reason: Itching Docusate Sodium (Colace) 100 mg PO BID PRN PRN Reason: Constipation Emollient Ointment (Lansinoh Hpa) 1 gm TOP ASDIRECTED PRN PRN Reason: Sore Nipples Ephedrine Sulfate (Ephedrine Sulfate) 10 mg IVPUSH ASDIRECTED PRN PRN Reason: Hypotension Fentanyl (Sublimaze) 100 mcg IVPUSH Q1H PRN PRN Reason: Pain (moderate 4-6) Penicillin G Potassium 2.5 (millunits/ Sodium Chloride) 50 mls @ 100 mls/hr IV Q4H KODY Last Admin: 03/23/19 17:12 Dose: Not Given Oxytocin/Sodium Chloride (Pitocin In Ns 20 Units/1,000 Ml) 20 unit in 1,000 mls @ 999 mls/hr IV ASDIRECTED [facility]; Protocol Last Titration: 03/23/19 15:06 Dose: 12 mls/hr, 12 mls/hr Lactated Ringer's (Ringers, Lactated) 1,000 mls @ 50 mls/hr IV ASDIRECTED [facility] Last Admin: 03/23/19 17:16 Dose: 50 mls/hr Ropivacaine 200 mg/ Premix 100 mls @ 0 mls/hr EPIDUR ASDIRECTED [facility] Ibuprofen (Motrin Bulk Bottle) 600 mg PO Q6H PRN PRN Reason: Pain Lidocaine HCl (Xylocaine 1%) 20 ml INJECT ONETIME ONE Stop: 03/23/19 17:13 Naloxone HCl (Narcan) 0.1 mg IVPUSH ASDIRECTED PRN PRN Reason: Oversedation Ondansetron HCl (Zofran) 4 mg IV Q4H PRN PRN Reason: Nausea/Vomiting Sodium Chloride (Saline Flush) 10 ml FLUSH ASDIRECTED PRN PRN Reason: Keep Vein Open Sodium Chloride (Saline Flush) 10 ml FLUSH ASDIRECTED PRN PRN Reason: Keep Vein Open Discontinued Medications Penicillin G Potassium 5 (millunits/ Sodium Chloride) 100 mls @ 100 mls/hr IV ONETIME ONE Stop: 03/23/19 09:29 Last Admin: 03/23/19 08:27 Dose: 100 mls/hr Ropivacaine (Naropin 0.2%) Confirm Administered Dose 100 mls @ as directed .ROUTE .STK-MED ONE Stop: 03/23/19 16:37 Lidocaine HCl (Xylocaine 1%) Confirm Administered Dose 100 ml .ROUTE .STK-MED ONE Stop: 03/23/19 16:41 Last Admin: 03/23/19 17:13 Dose: Not Given Misoprostol (Cytotec) 50 mcg VAG ONETIME ONE Stop: 03/23/19 07:41 Last Admin: 03/23/19 08:42 Dose: 50 mcg - Exam General: Alert, Oriented HEENT: Pupils Equal, Pupils Reactive, EOMI, Mucous Membr. Moist/[place] Neck: Supple Lungs: Clear to Auscultation, Normal Respiratory Effort Cardiovascular: Regular Rate, Regular Rhythm GI/Abdominal Exam: Normal Bowel Sounds, Soft, Non-Tender, No Organomegaly, No Distention, No Mass, Pelvis Stable (Female) Exam: Normal External Exam, Normal Bimanual Exam, Cervical Dilatation, Enlarged Uterus, Vaginal Bleeding. No: Cervical Lesions, Vaginal Tears Back Exam: Normal Inspection, Full Range of Motion Extremities: Normal Inspection, Normal Range of Motion, Non-Tender, No Pedal Edema, Normal Capillary Refill Skin: Warm, Dry, Intact Wound/Incisions: Healing Well Neurological: No New Focal Deficit Psy/Mental Status: Alert, Normal Affect, Normal Mood - Problem List & Annotations (1) IUGR (intrauterine growth retardation) Status: Acute Current Visit: Yes (2) Late care affecting SNOMED Code(s): 158532496 Code(s): O09.30 - SUPRVSN OF PREG W INSUFFICIENT ANTENAT CARE, UNSP TRIMESTER Status: Acute Current Visit: Yes (3) Tobacco abuse SNOMED Code(s): 323021832 Code(s): Z72.0 - TOBACCO USE Status: Acute Current Visit: Yes (4) Term SNOMED Code(s): 19478091 Code(s): Z34.90 - ENCNTR FOR SUPRVSN OF NORMAL , UNSP, UNSP TRIMESTER Status: Acute Current Visit: Yes (5) (normal spontaneous vaginal delivery) SNOMED Code(s): 56398903, 095382197 Code(s): O80 - ENCOUNTER FOR FULL-TERM UNCOMPLICATED DELIVERY Status: Acute Current Visit: Yes (6) Second degree laceration of perineum, delivered, current hospitalization SNOMED Code(s): 254210941, 582510256 Code(s): O70.1 - SECOND DEGREE PERINEAL LACERATION DURING DELIVERY Status: Acute Current Visit: Yes (7) started SNOMED Code(s): 206007963 Code(s): RMA8732 - Status: Acute Current Visit: Yes - Problem List Review Problem List Initiated/Reviewed/Updated: Yes - My Orders Last 24 Hours: My Active Orders 03/23/19 08:01 Patient Status [ADT] Routine Communication Order [RC] ASDIRECTED Heart Tones [RC] PER UNIT ROUTINE Non Stress Test [RC] Click to Edit Notify Provider [RC] PRN Up ad Veronica [RC] ASDIRECTED Vital Signs [RC] PER UNIT ROUTINE Calcium Carbonate [Tums] 1,000 mg PO Q2H PRN Ondansetron [Zofran] 4 mg IV Q4H PRN Sodium Chloride 0.9% [Saline Flush] 10 ml FLUSH ASDIRECTED PRN fentaNYL [Sublimaze] 100 mcg IVPUSH Q1H PRN DVT/VTE Prophylaxis Reflex [OM.PC] Routine Saline Lock Insert [OM.PC] Routine Resuscitation Status Routine 03/23/19 08:03 VTE/DVT Education [RC] Click to Edit 03/23/19 08:05 Notify Provider Vital Signs [RC] PRN 03/23/19 08:15 Oxytocin/Normal Saline [Pitocin in NS 20 Units/1,000 ML] 20 unit in 1,000 ml IV ASDIRECTED 03/23/19 10:00 Lactated Ringers [Ringers, Lactated] 1,000 ml IV ASDIRECTED 03/23/19 12:30 Penicillin G Potassium [Pfizerpen] 2.5 millunits Sodium Chloride 0.9% [Normal Saline] 50 ml IV Q4H 03/23/19 17:12 Lidocaine 1% [Xylocaine 1%] 20 ml INJECT ONETIME ONE 03/23/19 17:15 Consult to Career Guidance Technician [CONS] Routine Acetaminophen [Tylenol Bulk Bottle] See Dose Instructions PO Q4H PRN Docusate Sodium [Colace] 100 mg PO BID PRN Ibuprofen [Motrin Bulk Bottle] 600 mg PO Q6H PRN Lanolin [Lansinoh HPA] 1 gm TOP ASDIRECTED PRN Assess Lochia [WOMSER] Per Unit Routine Assess Uterine Involution [WOMSER] Per Unit Routine 03/23/19 17:16 Patient Status [ADT] Routine Vital Signs [RC] PFP Ice Therapy [OM.PC] Per Unit Routine Perineal Care [OM.PC] Per Unit Routine Peripheral IV Discontinue [OM.PC] Routine Sitz Bath [OM.PC] Per Unit Routine 03/23/19 Breakfast Regular Diet [DIET] 03/24/19 05:11 CBC WITH AUTO DIFF [HEME] AM - Assessment Assessment:: 03/23/19 29 yo at 38 1/7 weeks Second degree perineal laceration repaired FF bleeding moderate to light started - Plan Plan:: 03/23/19 29 yo is here at 38 1/7 weeks due to IUGR noted on ultrasound yesterday Cervix 2.5/70/-2 NST reactive Late care AXEL normal EFW on US 5 lb 1 oz GBS positive Hep C positive mother, RNA negative Plan: Cytotec 50 mcg inserted vaginally Plans nitrous oxide for pain control Anticipate of male Continuous monitoring for IUGR Antibiotics for GBS 03/23/19 Routine PP cares support Anticipate 48 hour stay for GBS (treated)
[2019-03-23] MEDS ORDERED: Witch Hazel Medicated Pads 100/Jar TOP PRN (18:21)
[2019-03-23] MEDS ORDERED: Benzocaine 20% Top Spray 56 GM Bottle TOP PRN (18:22)
--- NOTE | 2019-03-24 09:30 | PCM.PNPP ---
- General Info Date of Service: 03/24/19 Functional Status: Reports: Pain Controlled - Review of Systems General: Reports: No Symptoms HEENT: Reports: No Symptoms Pulmonary: Reports: No Symptoms Cardiovascular: Reports: No Symptoms Gastrointestinal: Reports: No Symptoms Genitourinary: Reports: No Symptoms Musculoskeletal: Reports: No Symptoms Skin: Reports: No Symptoms Neurological: Reports: No Symptoms Psychiatric: Reports: No Symptoms - General Info Date of Service: 03/24/19 - Patient Data Vital Signs - Most Recent: Last Vital Signs Temp 36.1 C 03/24/19 07:00 Pulse 87 03/24/19 07:00 Resp 16 03/24/19 07:00 BP 109/72 03/24/19 07:00 Pulse Ox 98 03/24/19 07:00 Weight - Most Recent: 75.296 kg I&O - Last 24 Hours: Intake & Output 03/23/19 03/24/19 03/24/19 22:59 06:59 14:59 Intake Total 2191 Balance 2191 Lab Results - Last 24 Hours: Laboratory Results - last 24 hr 03/24/19 Range/Units 05:45 WBC 16.3 H (4.5-11.0) K/uL RBC 3.48 (3.30-5.50) M/uL Hgb 10.5 L D (12.0-15.0) g/dL Hct 32.3 L (36.0-48.0) % MCV 93 (80-98) fL MCH 30 (27-31) pg MCHC 33 (32-36) % Plt Count 290 (150-400) K/uL Neut % (Auto) 71 H (36-66) % Lymph % (Auto) 22 L (24-44) % [place] % (Auto) 7 H (2-6) % Eos % (Auto) 1 L (2-4) % Baso % (Auto) 0 (0-1) % Med Orders - Current: Current Medications Acetaminophen (Tylenol Bulk Bottle) 0 mg PO Q4H PRN PRN Reason: Pain Last Admin: 03/23/19 18:24 Dose: 1 bottle Benzocaine (Ubob-L-Nvnirzl 20% [place]) 0 gm TOP Q2H PRN PRN Reason: Perineal Comfort Measure Last Admin: 03/23/19 20:44 Dose: 1 spray Calcium Carbonate/Glycine (Tums) 1,000 mg PO Q2H PRN PRN Reason: Indigestion Diphenhydramine HCl (Benadryl) 25 mg IVPUSH Q6H PRN PRN Reason: Itching Diphenhydramine HCl (Benadryl) 50 mg IVPUSH Q6H PRN PRN Reason: Itching Docusate Sodium (Colace) 100 mg PO BID PRN PRN Reason: Constipation Emollient Ointment (Lansinoh Hpa) 1 gm TOP ASDIRECTED PRN PRN Reason: Sore Nipples Last Admin: 03/23/19 18:24 Dose: 1 applic Ephedrine Sulfate (Ephedrine Sulfate) 10 mg IVPUSH ASDIRECTED PRN PRN Reason: Hypotension Lactated Ringer's (Ringers, Lactated) 1,000 mls @ 50 mls/hr IV ASDIRECTED [facility] Last Admin: 03/23/19 17:16 Dose: 50 mls/hr Ropivacaine 200 mg/ Premix 100 mls @ 0 mls/hr EPIDUR ASDIRECTED [facility] Last Admin: 03/23/19 16:25 Dose: 12 mls/hr Ibuprofen (Motrin Bulk Bottle) 600 mg PO Q6H PRN PRN Reason: Pain Last Admin: 03/23/19 18:24 Dose: 1 bottle Naloxone HCl (Narcan) 0.1 mg IVPUSH ASDIRECTED PRN PRN Reason: Oversedation Ondansetron HCl (Zofran) 4 mg IV Q4H PRN PRN Reason: Nausea/Vomiting Sodium Chloride (Saline Flush) 10 ml FLUSH ASDIRECTED PRN PRN Reason: Keep Vein Open Enrique Mccabe (Raciel) 1 pad TOP ASDIRECTED PRN PRN Reason: Perineal Comfort Measure Last Admin: 03/23/19 20:44 Dose: 1 applic Discontinued Medications Fentanyl (Sublimaze) 100 mcg IVPUSH Q1H PRN PRN Reason: Pain (moderate 4-6) Penicillin G Potassium 5 (millunits/ Sodium Chloride) 100 mls @ 100 mls/hr IV ONETIME ONE Stop: 03/23/19 09:29 Last Admin: 03/23/19 08:27 Dose: 100 mls/hr Penicillin G Potassium 2.5 (millunits/ Sodium Chloride) 50 mls @ 100 mls/hr IV Q4H [facility] Last Admin: 03/23/19 17:12 Dose: Not Given Oxytocin/Sodium Chloride (Pitocin In Ns 20 Units/1,000 Ml) 20 unit in 1,000 mls @ 999 mls/hr IV ASDIRECTED [facility]; Protocol Last Titration: 03/23/19 16:41 Dose: 999 mls/hr, 999 mls/hr Ropivacaine (Naropin 0.2%) Confirm Administered Dose 100 mls @ as directed .ROUTE .STK-MED ONE Stop: 03/23/19 16:37 Lidocaine HCl (Xylocaine 1%) Confirm Administered Dose 100 ml .ROUTE .STK-MED ONE Stop: 03/23/19 16:41 Last Admin: 03/23/19 17:13 Dose: Not Given Lidocaine HCl (Xylocaine 1%) 20 ml INJECT ONETIME ONE Stop: 03/23/19 17:13 Last Admin: 03/23/19 17:34 Dose: 20 ml Misoprostol (Cytotec) 50 mcg VAG ONETIME ONE Stop: 03/23/19 07:41 Last Admin: 03/23/19 08:42 Dose: 50 mcg Sodium Chloride (Saline Flush) 10 ml FLUSH ASDIRECTED PRN PRN Reason: Keep Vein Open - Infant Interaction Disposition, : in Room with Family Interaction: Holding Feeding: Attempted ; Nursed Fair/Poor Support Person: Significant Other - Recovery Exam Fundal Tone: Firm Fundal Level: 2 Fingerbreadths Below Umbilicus Fundal Placement: Midline Lochia Amount: Moderate Lochia Color: [place]/Red Perineum Description: Intact, Minimal Bruising/Swelling Episiotomy/Laceration: Approximated Bladder Status: Voiding Urinary Elimination: Voided Other Urinary Elimination, : due to void - Exam General: Alert, Oriented HEENT: Pupils Equal Neck: Supple Lungs: Clear to Auscultation, Normal Respiratory Effort Cardiovascular: Regular Rate, Regular Rhythm GI/Abdominal Exam: Normal Bowel Sounds, Soft, Non-Tender, No Organomegaly, No Distention, No Mass, Pelvis Stable Extremities: Normal Inspection, Normal Range of Motion, Non-Tender, No Pedal Edema, Normal Capillary Refill Skin: Warm, Dry, Intact Neurological: No New Focal Deficit Psy/Mental Status: Alert, Normal Affect, Normal Mood - Problem List & Annotations (1) IUGR (intrauterine growth retardation) Status: Acute Current Visit: Yes (2) Late care affecting SNOMED Code(s): 451897235 Code(s): O09.30 - SUPRVSN OF PREG W INSUFFICIENT ANTENAT CARE, UNSP TRIMESTER Status: Acute Current Visit: Yes (3) Tobacco abuse SNOMED Code(s): 547672903 Code(s): Z72.0 - TOBACCO USE Status: Acute Current Visit: Yes (4) Term SNOMED Code(s): 04859604 Code(s): Z34.90 - ENCNTR FOR SUPRVSN OF NORMAL , UNSP, UNSP TRIMESTER Status: Acute Current Visit: Yes (5) (normal spontaneous vaginal delivery) SNOMED Code(s): 65048105, 537304837 Code(s): O80 - ENCOUNTER FOR FULL-TERM UNCOMPLICATED DELIVERY Status: Acute Current Visit: Yes (6) Second degree laceration of perineum, delivered, current hospitalization SNOMED Code(s): 310270940, 776072048 Code(s): O70.1 - SECOND DEGREE PERINEAL LACERATION DURING DELIVERY Status: Acute Current Visit: Yes (7) started SNOMED Code(s): 512249270 Code(s): DBV1690 - Status: Acute Current Visit: Yes - Problem List Review Problem List Initiated/Reviewed/Updated: Yes - My Orders Last 24 Hours: My Active Orders 03/23/19 10:00 Lactated Ringers [Ringers, Lactated] 1,000 ml IV ASDIRECTED 03/23/19 17:15 Consult to Hose Cementer [CONS] Routine Acetaminophen [Tylenol Bulk Bottle] See Dose Instructions PO Q4H PRN Docusate Sodium [Colace] 100 mg PO BID PRN Ibuprofen [Motrin Bulk Bottle] 600 mg PO Q6H PRN Lanolin [Lansinoh HPA] 1 gm TOP ASDIRECTED PRN Assess Lochia [WOMSER] Per Unit Routine Assess Uterine Involution [WOMSER] Per Unit Routine 03/23/19 17:16 Patient Status [ADT] Routine Vital Signs [RC] PFP Ice Therapy [OM.PC] Per Unit Routine Perineal Care [OM.PC] Per Unit Routine Peripheral IV Discontinue [OM.PC] Routine Sitz Bath [OM.PC] Per Unit Routine 03/23/19 18:21 Witch Estelle [[place]] 1 pad TOP ASDIRECTED PRN 03/23/19 18:22 Benzocaine [Yfew-C-Pqhlwpv 20% [place]] 0 gm TOP Q2H PRN - Assessment Assessment:: 03/23/19 29 yo at 38 1/7 weeks Second degree perineal laceration repaired FF bleeding moderate to light started 03/24/19 PP day 1, no complications Hemoglobin predelivery 13.0, 10.5 this am FF and bleeding is light, no clots Perineum well approximated Pain controlled going fair, shallow latch and nipples are sore - Plan Plan:: 03/23/19 29 yo is here at 38 1/7 weeks due to IUGR noted on ultrasound yesterday Cervix 2.5/70/-2 NST reactive Late care AXEL normal EFW on US 5 lb 1 oz GBS positive Hep C positive mother, RNA negative Plan: Cytotec 50 mcg inserted vaginally Plans nitrous oxide for pain control Anticipate of male infant Continuous monitoring for IUGR Antibiotics for GBS 03/23/19 Routine PP cares support Anticipate 48 hour stay for GBS (treated) 03/24/19 Routine PP cares Continue support Anticipate discharge home tomorrow
--- NOTE | 2019-03-25 08:46 | PCM.PNPP ---
- General Info Date of Service: 03/25/19 (PPD 2 D/C) Admission Dx/Problem (Free Text): Patient Status Order with Admit Dx/Problem 03/23/19 08:01 Patient Status [ADT] Routine Admission Diagnosis/Problem Admission Diagnosis/Problem Term Functional Status: Reports: Pain Controlled - Review of Systems General: Reports: No Symptoms HEENT: Reports: No Symptoms Pulmonary: Reports: No Symptoms Cardiovascular: Reports: No Symptoms Gastrointestinal: Reports: No Symptoms Genitourinary: Reports: No Symptoms Musculoskeletal: Reports: No Symptoms Skin: Reports: No Symptoms Neurological: Reports: No Symptoms Psychiatric: Reports: No Symptoms - General Info Date of Service: 03/25/19 - Patient Data Vital Signs - Most Recent: Last Vital Signs Temp 97.1 F 03/25/19 07:00 Pulse 84 03/25/19 07:00 Resp 15 03/25/19 07:00 BP 104/68 03/25/19 07:00 Pulse Ox 97 03/25/19 07:00 Weight - Most Recent: 166 lb Med Orders - Current: Current Medications Acetaminophen (Tylenol Bulk Bottle) 0 mg PO Q4H PRN PRN Reason: Pain Last Admin: 03/23/19 18:24 Dose: 1 bottle Benzocaine (Tpey-Z-Fagqnrz 20% [place]) 0 gm TOP Q2H PRN PRN Reason: Perineal Comfort Measure Last Admin: 03/23/19 20:44 Dose: 1 spray Calcium Carbonate/Glycine (Tums) 1,000 mg PO Q2H PRN PRN Reason: Indigestion Diphenhydramine HCl (Benadryl) 25 mg IVPUSH Q6H PRN PRN Reason: Itching Diphenhydramine HCl (Benadryl) 50 mg IVPUSH Q6H PRN PRN Reason: Itching Docusate Sodium (Colace) 100 mg PO BID PRN PRN Reason: Constipation Emollient Ointment (Lansinoh Hpa) 1 gm TOP ASDIRECTED PRN PRN Reason: Sore Nipples Last Admin: 03/23/19 18:24 Dose: 1 applic Ephedrine Sulfate (Ephedrine Sulfate) 10 mg IVPUSH ASDIRECTED PRN PRN Reason: Hypotension Lactated Ringer's (Ringers, Lactated) 1,000 mls @ 50 mls/hr IV ASDIRECTED [facility] Last Admin: 12/14/19 17:16 Dose: 50 mls/hr Ibuprofen (Motrin Bulk Bottle) 600 mg PO Q6H PRN PRN Reason: Pain Last Admin: 03/23/19 18:24 Dose: 1 bottle Naloxone HCl (Narcan) 0.1 mg IVPUSH ASDIRECTED PRN PRN Reason: Oversedation Ondansetron HCl (Zofran) 4 mg IV Q4H PRN PRN Reason: Nausea/Vomiting Sodium Chloride (Saline Flush) 10 ml FLUSH ASDIRECTED PRN PRN Reason: Keep Vein Open Witsahil Mccabe (Tucks) 1 pad TOP ASDIRECTED PRN PRN Reason: Perineal Comfort Measure Last Admin: 03/23/19 20:44 Dose: 1 applic Discontinued Medications Fentanyl (Sublimaze) 100 mcg IVPUSH Q1H PRN PRN Reason: Pain (moderate 4-6) Penicillin G Potassium 5 (millunits/ Sodium Chloride) 100 mls @ 100 mls/hr IV ONETIME ONE Stop: 03/23/19 09:29 Last Admin: 03/23/19 08:27 Dose: 100 mls/hr Penicillin G Potassium 2.5 (millunits/ Sodium Chloride) 50 mls @ 100 mls/hr IV Q4H [facility] Last Admin: 03/23/19 17:12 Dose: Not Given Oxytocin/Sodium Chloride (Pitocin In Ns 20 Units/1,000 Ml) 20 unit in 1,000 mls @ 999 mls/hr IV ASDIRECTED [facility]; Protocol Last Titration: 03/23/19 16:41 Dose: 999 mls/hr, 999 mls/hr Ropivacaine (Naropin 0.2%) Confirm Administered Dose 100 mls @ as directed .ROUTE .STK-MED ONE Stop: 03/23/19 16:37 Ropivacaine 200 mg/ Premix 100 mls @ 0 mls/hr EPIDUR ASDIRECTED [facility] Last Admin: 03/23/19 16:25 Dose: 12 mls/hr Lidocaine HCl (Xylocaine 1%) Confirm Administered Dose 100 ml .ROUTE .STK-MED ONE Stop: 03/23/19 16:41 Last Admin: 03/23/19 17:13 Dose: Not Given Lidocaine HCl (Xylocaine 1%) 20 ml INJECT ONETIME ONE Stop: 03/23/19 17:13 Last Admin: 12/14/19 17:34 Dose: 20 ml Misoprostol (Cytotec) 50 mcg VAG ONETIME ONE Stop: 03/23/19 07:41 Last Admin: 03/23/19 08:42 Dose: 50 mcg Sodium Chloride (Saline Flush) 10 ml FLUSH ASDIRECTED PRN PRN Reason: Keep Vein Open - Infant Interaction Infant Disposition, : in Room with Family Interaction: Holding Infant Infant Feeding: Attempted ; Nursed Fair/Poor Support Person: Significant Other - Recovery Exam Fundal Tone: Firm Fundal Level: 1 Fingerbreadths Below Umbilicus Fundal Placement: Midline Lochia Amount: Scant Lochia Color: [place] Perineum Description: Intact, Minimal Bruising/Swelling Episiotomy/Laceration: Approximated Bladder Status: Voiding Urinary Elimination: Voided Other Urinary Elimination, : due to void - Exam General: Alert, Oriented HEENT: Pupils Equal Neck: Supple Lungs: Clear to Auscultation, Normal Respiratory Effort Cardiovascular: Regular Rate, Regular Rhythm GI/Abdominal Exam: Normal Bowel Sounds, Soft, Non-Tender, No Organomegaly, No Distention, No Abnormal Bruit, No Mass, Pelvis Stable Extremities: Normal Inspection, Normal Range of Motion, Non-Tender, No Pedal Edema, Normal Capillary Refill Skin: Warm, Dry, Intact Wound/Incisions: Healing Well Neurological: No New Focal Deficit Psy/Mental Status: Alert, Normal Affect, Normal Mood - Problem List & Annotations (1) SNOMED Code(s): 37252681 Code(s): Z34.90 - ENCNTR FOR SUPRVSN OF NORMAL , UNSP, UNSP TRIMESTER Status: Acute Current Visit: No Qualifiers: Weeks of gestation: 38 weeks Qualified Code(s): Z3A.38 - 38 weeks gestation of (2) Normal vaginal delivery SNOMED Code(s): 20874389, 162085120 Code(s): O80 - ENCOUNTER FOR FULL-TERM UNCOMPLICATED DELIVERY Status: Acute Current Visit: No (3) IUGR (intrauterine growth retardation) Status: Acute Current Visit: Yes (4) Late care affecting SNOMED Code(s): 155464024 Code(s): O09.30 - SUPRVSN OF PREG W INSUFFICIENT ANTENAT CARE, UNSP TRIMESTER Status: Acute Current Visit: Yes Qualifiers: Trimester: third trimester Qualified Code(s): O09.33 - Supervision of with insufficient care, third trimester (5) Tobacco abuse SNOMED Code(s): 622733864 Code(s): Z72.0 - TOBACCO USE Status: Acute Current Visit: Yes (6) Second degree laceration of perineum, delivered, current hospitalization SNOMED Code(s): 602445171, 587050319 Code(s): O70.1 - SECOND DEGREE PERINEAL LACERATION DURING DELIVERY Status: Acute Current Visit: Yes - Problem List Review Problem List Initiated/Reviewed/Updated: Yes - Assessment Assessment:: 03/23/19 29 yo at 38 1/7 weeks Second degree perineal laceration repaired FF bleeding moderate to light started 03/24/19 PP day 1, no complications Hemoglobin predelivery 13.0, 10.5 this am FF and bleeding is light, no clots Perineum well approximated Pain controlled going fair, shallow latch and nipples are sore 03/25/19 PPD 2 D/C happy, wanting to go home No fever, HGB 10.5 better, latching well and vigorous at breast Not much perineum pain and flow is light, voiding - Plan Plan:: 03/23/19 29 yo is here at 38 1/7 weeks due to IUGR noted on ultrasound yesterday Cervix 2.5/70/-2 NST reactive Late care AXEL normal EFW on US 5 lb 1 oz GBS positive Hep C positive mother, RNA negative Plan: Cytotec 50 mcg inserted vaginally Plans nitrous oxide for pain control Anticipate of male infant Continuous monitoring for IUGR Antibiotics for GBS 03/23/19 Routine PP cares support Anticipate 48 hour stay for GBS (treated) 03/24/19 Routine PP cares Continue support Anticipate discharge home tomorrow 03/25/19 Home today See me in 6 weeks for a post visit
== END 2019-03-25 12:00 | disposition home or self-care (01) | DRG 807 ==
LOC: JP.OB 07:26 → OBSVTOIN 16:36 → JP.OB 16:36 → JP.MS 19:00
PROVIDERS: ADMIT Advanced Practice Midwife; ATTEND Advanced Practice Midwife
PROC: 10E0XZZ Delivery of Products of Conception, External Approach (ICD-10-PCS; principal; 2019-03-23)
PROC: 0KQM0ZZ Repair Perineum Muscle, Open Approach (ICD-10-PCS; 2019-03-23)
PROC: 3E0P7VZ Introduction of Hormone into Female Reproductive, Via Natural or Artificial Opening (ICD-10-PCS; 2019-03-23)
PROC: 10907ZC Drainage of Amniotic Fluid, Therapeutic from Products of Conception, Via Natural or Artificial Opening (ICD-10-PCS; 2019-03-23)
PROC: 3E033VJ Introduction of Other Hormone into Peripheral Vein, Percutaneous Approach (ICD-10-PCS; 2019-03-23)
PROC: 3E0R3BZ Introduction of Anesthetic Agent into Spinal Canal, Percutaneous Approach (ICD-10-PCS; 2019-03-23)
PROC: 00HU33Z Insertion of Infusion Device into Spinal Canal, Percutaneous Approach (ICD-10-PCS; 2019-03-23)
DX: O36.5930 Maternal care for other known or suspected poor fetal growth, third trimester, not applicable or unspecified (principal); Z37.0 Single live birth; O99.824 Streptococcus B carrier state complicating childbirth; Z3A.38 38 weeks gestation of pregnancy; O99.334 Smoking (tobacco) complicating childbirth; F17.210 Nicotine dependence, cigarettes, uncomplicated; O70.1 Second degree perineal laceration during delivery
CPT/HCPCS: 36415; 59409; 80305-QW; 81001; 85025; A9270-GY; J2001; J2540; J2590; J2795; J7050; J7120